=== PATIENT | female | born 1980 | race Caucasian/White ===

== ENCOUNTER 2020-08-30 13:05 | Emergency (ER) | payer OTHER, BC, SELFPAY ==
[2020-08-30 13:18] VITALS: BP 128/81; PULSE 130; RESP 28; TEMP 37.4; O2SAT 97
--- NOTE | 2020-08-30 13:32 | ED.FEMALEGU ---
HPI - Female Genitourinary General Chief complaint: Urogenital-Female Stated complaint: pos uti Time Seen by Provider: 08/30/20 13:20 Source: patient and RN notes reviewed Mode of arrival: ambulatory Limitations: no limitations History of Present Illness HPI Narrative: Patient presents today complaining of urinary frequency, cloudy urine, dysuria x4 days. Denies hematuria, abdominal pain, flank pain. She has been using cranberry supplements and Pyridium. Her last dose of Pyridium was this morning. No recent antibiotic use. MD elicited complaint: dysuria Related Data Home Medications Medication Instructions Recorded Confirmed albuterol sulfate 2 puff INHALATION Q4-6H PRN 08/30/20 08/30/20 cetirizine 10 mg PO DAILY PRN 08/30/20 08/30/20 dextroamphetamine-amphetamine 30 mg PO BID 08/30/20 08/30/20 ergocalciferol (vitamin D2) 1,250 mcg PO WEEKLY 08/30/20 08/30/20 famotidine 20 mg PO DAILY 08/30/20 08/30/20 fluticasone propion-salmeterol 1 inh INHALATION BID 08/30/20 08/30/20 [Wixela Inhub] montelukast 10 mg PO HS 08/30/20 08/30/20 trazodone 100 mg PO HS 08/30/20 08/30/20 Allergies Allergy/AdvReac Type Severity Reaction Status Date / Time No Known Allergies Allergy Verified 08/30/20 13:21 Review of Systems Review of Systems: Narrative: CONSTITUTIONAL: Denies body aches, fever, chills, or sweats. EYES: Denies visual changes, redness, or discharge. ENT: Denies rhinorrhea, congestion, sore throat, or otalgia. CARDIOVASCULAR: Denies chest pain, palpitations, or edema. RESPIRATORY: Denies cough or dyspnea. GASTROINTESTINAL: Denies abdominal pain, nausea, vomiting, or diarrhea. GENITOURINARY: Denies hematuria. + Dysuria, frequency SKIN: Denies rash, itching, or wounds. MUSCULOSKELETAL: Denies back pain, joint pain, or myalgia. NEUROLOGIC: Denies headache, numbness, tingling, or weakness. PSYCH: Denies depression or anxiety. [facility] Past Medical History Medical History (Updated 08/30/20 @ 13:34 by Donna Renner, [employer], ) Asthma Comments At time of signature, I have reviewed and agree with nursing past medical, surgical, social and family history unless otherwise noted. Please see nursing chart for further information. There is no relevant family history pertinent to the presenting complaint Exam Narrative: Exam Narrative: GENERAL: Well-appearing, well-nourished, and in no acute distress. HEAD: Normocephalic, atraumatic. EYES: EOMI. No redness or drainage. Conjunctivae normal. ENT: Mucous membranes pink and moist. NECK: Normal AROM. Supple. No lymphadenopathy. CHEST: No respiratory distress. Clear to auscultation. HEART: Regular rate and rhythm. No murmur appreciated. Normal peripheral pulses. ABDOMEN: Soft, nontender, nondistended, normal active bowel sounds.-CVAT MUSCULOSKELETAL: No bony tenderness. EXTREMITIES: Normal range of motion. No edema. SKIN: Warm, dry, no rash. Capillary refill normal. Normal skin turgor. NEURO: No focal deficits. Alert and oriented x3. Gait steady. PSYCH: Normal affect. No signs of depression or anxiety. Course Vital Signs Vital signs: Vital Signs Temperature 99.4 F 08/30/20 13:18 Pulse Rate 130 H 08/30/20 13:18 Respiratory Rate 28 H 08/30/20 13:18 Blood Pressure 128/81 08/30/20 13:18 Pulse Oximetry 97 08/30/20 13:18 Temperature 99.4 F 08/30/20 13:18 Pulse Rate 130 H 08/30/20 13:18 Respiratory Rate 28 H 08/30/20 13:18 Blood Pressure 128/81 08/30/20 13:18 Pulse Oximetry 97 08/30/20 13:18 Reviewed. Pt has been instructed to follow up with her PCP regarding her elevated blood pressure today. MDM - Female Genitourinary MDM Narrative Medical decision making narrative: Patient has been instructed not to take Pyridium or Azo if she is going to come in to be evaluated for UTI. We will treat her for Macrobid and wait for culture results. Differential Diagnosis Differential diagnosis: Likely urinary tract infection and cystitis Lab Rubin
== END 2020-08-30 13:40 | disposition home or self-care (01) ==
PROVIDERS: Emergency Provider Nurse Practitioner; PCP Family Medicine
DX: N30.01 Acute cystitis with hematuria (principal); J45.909 Unspecified asthma, uncomplicated; K21.9 Gastro-esophageal reflux disease without esophagitis; F90.9 Attention-deficit hyperactivity disorder, unspecified type
CPT/HCPCS: 81003; 87086; 87088; 99203; G0463

== ENCOUNTER → 2020-12-15 07:12 | Outpatient (CLI) | payer BC, SELFPAY ==
[2020-12-15 19:40] LABS: SARS-CoV-2 RNA PCR Negative
== END ==
PROVIDERS: PCP Family Medicine; Visit Provider Family Medicine
DX: R50.9 Fever, unspecified (principal); Z20.822 Contact with and (suspected) exposure to COVID-19
CPT/HCPCS: C9803; U0003; U0005

== ENCOUNTER 2021-05-08 16:02 | Emergency (ER) | payer BC, SELFPAY ==
[2021-05-08 16:41] VITALS: BP 138/99; PULSE 101; RESP 14; TEMP 37.2; O2SAT 100
[2021-05-08 17:15] LABS: Basophils Absolute Auto 0.1 K/mm3 (0.0-0.1); Basophils Percent Auto 0.6 % (0.2-1.2); Eosinophils Absolute Auto 0.3 K/mm3 (0-0.3); Eosinophils Percent Auto 2.7 % (0-4.4); Hematocrit 45.5 % (37.0-47.0); Immature Granulocyte Absolute 0.04 K/mm3 (0.00-0.031); Immature Granulocyte Percent A 0.4 % (0-0.5); Lymphocytes Absolute Auto 3.16 K/mm3 (0.9-3.2); Lymphocytes Percent Auto 31.8 % (18.3-44.2); Mean Corpuscular HGB Conc 35.2 g/dl (32-36); Mean Corpuscular Hemoglobin 32.6 pg (26-34); Mean Corpuscular Volume 92.7 fl (80-100); Mean Platelet Volume 11.2 fl (7.4-10.4); Monocytes Absolute Auto 0.8 K/mm3 (0.1-0.6); Monocytes Percent Auto 7.6 % (2.6-8.5); Neutrophils Absolute Auto 5.7 K/mm3 (1.3-6.7); Neutrophils Percent Auto 56.9 % (45.5-73.1); Platelet Count Result 267 k/mm3 (150-375); Red Blood Count 4.91 M/mm3 (4.2-5.4); Red Cell Distribution Width 12.3 % (11.5-14.5); White Blood Count 9.9 K/mm3 (4.5-10.0)
[2021-05-08 19:44] VITALS: BP 137/78; PULSE 94; RESP 16; TEMP 36.3; O2SAT 94
[2021-05-08 21:40] VITALS: BP 125/78; PULSE 94; RESP 16; TEMP 36.4; O2SAT 99
--- NOTE | 2021-05-08 22:18 | PC.NURSE ---
Pt does not want to be seen by provider, walked out at this time.
== END 2021-05-08 23:56 | disposition left against medical advice (07) ==
PROVIDERS: Emergency Provider Emergency Medicine
DX: N93.9 Abnormal uterine and vaginal bleeding, unspecified (principal)
CPT/HCPCS: 36415; 85025; 99199

== ENCOUNTER 2023-05-04 11:47 | Emergency (ER) | payer OTHER, BC, SELFPAY ==
[2023-05-04 12:04] VITALS: BP 128/82; PULSE 107; RESP 18; TEMP 36.5; O2SAT 98
--- NOTE | 2023-05-04 12:22 | ED.WOUNDLAC ---
HPI - Wound/Laceration General Chief Complaint: Wound/Laceration Stated Complaint: finger laceration Time Seen by Provider: 05/04/23 12:14 Source: patient and RN notes reviewed Mode of arrival: ambulatory Limitations: no limitations History of Present Illness HPI narrative: Patient presents today complaining of a laceration to her left 2nd finger that occurred yesterday approximately 24 hours ago. She cut her finger on a brand new eyebrow razor. She dressed it with some liquid skin glue yesterday and kept it covered. She is not up-to-date on her tetanus vaccine. Related Data Home Medications Medication Instructions Recorded Confirmed albuterol sulfate 90 mcg/actuation 2 puff inhalation Q4-6H PRN 08/30/20 05/04/23 aerosol inhaler Shortness Of Breath cetirizine 10 mg tablet 10 mg PO DAILY PRN Allergy Symptoms 08/30/20 05/04/23 dextroamphetamine-amphetamine 30 30 mg PO BID 08/30/20 05/04/23 mg tablet ergocalciferol (vitamin D2) 1,250 1,250 mcg PO WEEKLY 08/30/20 05/04/23 mcg (50,000 unit) capsule famotidine 20 mg tablet 20 mg PO DAILY 08/30/20 05/04/23 fluticasone 250 mcg-salmeterol 50 1 inh inhalation BID 08/30/20 05/04/23 mcg/dose blistr powdr for inhalation (Wixela Inhub) montelukast 10 mg tablet 10 mg PO HS 08/30/20 05/04/23 Allergies Allergy/AdvReac Type Severity Reaction Status Date / Time No Known Allergies Allergy Verified 05/04/23 12:19 Review of Systems Review of Systems: CONSTITUTIONAL: Denies body aches, fever, chills, or sweats. EYES: Denies visual changes, redness, or discharge. ENT: Denies rhinorrhea, congestion, sore throat, or otalgia. CARDIOVASCULAR: Denies chest pain, palpitations, or edema. RESPIRATORY: Denies cough or dyspnea. GASTROINTESTINAL: Denies abdominal pain, nausea, vomiting, or diarrhea. GENITOURINARY: Denies dysuria or hematuria. SKIN: + finger laceration MUSCULOSKELETAL: Denies back pain, joint pain, or myalgia. NEUROLOGIC: Denies headache, numbness, tingling, or weakness. PSYCH: Denies depression or anxiety. PMFSH Past Medical History Medical History Asthma Comments At time of signature, I have reviewed and agree with nursing past medical, surgical, social and family history unless otherwise noted. Please see nursing chart for further information. There is no relevant family history pertinent to the presenting complaint Exam Narrative: GENERAL: Well-appearing, well-nourished, and in no acute distress. HEAD: Normocephalic, atraumatic. EYES: EOMI. No redness or drainage. Conjunctivae normal. ENT: Mucous membranes pink and moist. NECK: Normal AROM. CHEST: No respiratory distress. EXTREMITIES: Normal range of motion. No edema. SKIN: Warm, dry, no rash. Capillary refill normal. Normal skin turgor. 1.5 cm full-thickness linear laceration to the palmar aspect of the left 2nd finger at the middle phalanx. No active bleeding. Mild surrounding edema. Small amount of obvious adipose visualized. Distal sensation intact. Capillary refill normal. Full range of motion of the finger. NEURO: No focal deficits. Alert and oriented x3. Gait steady. PSYCH: Normal affect. No signs of depression or anxiety. Course Course Level of Care: Express Care Visit Vital Signs Vital signs: Vital Signs Temperature 97.7 F 05/04/23 12:04 Pulse Rate 107 H 05/04/23 12:04 Respiratory Rate 18 05/04/23 12:04 Blood Pressure 128/82 05/04/23 12:04 Pulse Oximetry 98 05/04/23 12:04 Oxygen Delivery Room Air 05/04/23 12:04 Temperature 97.7 F 05/04/23 12:04 Pulse Rate 107 H 05/04/23 12:04 Respiratory Rate 18 05/04/23 12:04 Blood Pressure 128/82 05/04/23 12:04 Pulse Oximetry 98 05/04/23 12:04 Oxygen Delivery Room Air 05/04/23 12:04 Reviewed. Pt has been instructed to follow up with her PCP regarding her elevated blood pressure today. MDM - Wound/Laceration MDM Narrati
[2023-05-04] MEDS: TETANUS,DIPHTHERIA,AC PERTUSSIS ADULT (0.5 ML) BOOSTRIX IM (12:28)
== END 2023-05-04 12:38 | disposition home or self-care (01) ==
PROVIDERS: Emergency Provider Nurse Practitioner; PCP Family Medicine
DX: S61.211A Laceration without foreign body of left index finger without damage to nail, initial encounter (principal); W26.9XXA Contact with unspecified sharp object(s), initial encounter; Z23 Encounter for immunization
CPT/HCPCS: 90471; 90715; 99213; G0463

== ENCOUNTER 2024-12-10 08:29 | Emergency (ER) | payer OTHER, MEDICAID, SELFPAY ==
--- NOTE | ~2024-12-10 | XR_ITS ---
EXAM/PROCEDURE: XR chest 2V - 12/10/2024 09:00 CDT HISTORY: 44 years old Female with cough, SOB TECHNIQUE: Two view(s) of the chest. COMPARISON: 06/20/2014 FINDINGS: LUNGS/ PLEURA: No focal consolidation. Mild perihilar bronchial wall thickening. HEART/ MEDIASTINUM: Heart appears normal in size. BONES: No acute osseous abnormality. OTHER: Visualized upper abdomen is unremarkable. IMPRESSION: No focal consolidation. Mild perihilar bronchial wall thickening, findings suggestive of respiratory bronchiolitis. Reviewed, dictated and finalized at location A. IMPRESSION: No focal consolidation. Mild perihilar bronchial wall thickening, findings sugg estive of respiratory bronchiolitis.
--- OUTSIDE RECORDS SUMMARY | 2024-12-10 08:37 | XMS_ITS | Continuity of Care Document ---
Author Organization [employer] [facility] Address [address] [place] [id number] Phone Care Team Providers Care Chute Operator Name Role Phone Chacorta Nguyen MD, FACS Unavailable Unavailab le Allergies, Adverse Reactions, Alerts Substance Reaction Status Criticality No Known Allergies Active No Inform ation Medications Medication Instructions Dosage Effective Dates (start - stop) Status Comments Alrex 0.2 % eye drops,suspension INSTILL 1 DROP INTO BOTH EYES TWICE DAILY - Active ProAir HFA 90 mcg/actuation Aerosol Inhaler inhale 2 puff by inhalation route every 4 - 6 hours as needed - Active ADVAIR DISKUS (unknown strength) Not Available - Active ADDERALL (unknown strength) take 1 tablet by ORAL route 2 times every day before breakfast and at noon Not Available - Active Alrex 0.2 % eye drops,suspension INSTILL 1 DROP INTO BOTH EYES TWICE DAILY - No Longer Active Procedures Procedure Date Post-op Follow-up Visit Post-op Follow-up Visit Post-op Follow-up Visit Post-op Follow-up Visit No Charge Orbscan Post-op Follow-up Visit Eye Exam & Treatment Refraction Contact Lens Assessment Contact Lens Hydrophilic, Spherical Eye Exam & Treatment Refraction Contact Lens Fit, Med Superv, Level 1 Au Contact Lens Hydrophilic, Spherical Eye Exam & Treatment Refraction Contact Lens Hydrophilic, Spherical Contact Lens Fit, Med Superv, Level 1 Contact Lens Hydrophilic, Spherical Eye Exam & Treatment Refraction Eye Exam & Treatment Eye Exam & Treatment Refraction Advance Directives Directive Yes / No Effective Date File Name No Information Encounters Encounter Description Practice Location Reason(s) For Visit Diagnoses Date Provider Providers Copied on Encounter [facility], [facility] [address], [place], [place], [id number], [place] [phone] SEC Megan Mendenhall No Information 8 Patrick Whatley. [facility] [address], [address], [place], [place], [id number], [place]. tel:[phone] [facility], [facility] [address], [place], [place], [id number], [place] tel:[phone] SEC [place] No Information 7 Dara Valencia. [address] [place], [address], [place]. tel:[phone] [facility], [facility] [address], [place], [place], [address], [place] tel:[phone] SEC Megan Mendenhall 3 month f/u, Post op (chief complaint) Post Op exam 0 5 Maria E Lieberman. [address] [facility] [place] [facility], [facility] [address], [place], [id number], [place]. tel:[phone] Referring Provider: Chacorta Damon, [facility] [address], [place], [address] . tel:[phone] [facility], [facility] [address], [place], [place], [address], [place] tel:[phone] SEC Mancelona N Lindbergh 3 MO LASIK PO (chief complaint) FOLLOW-UP SURGERY NOS 0-201 5 Maria E Lieberman. [address], [id number], . tel:[phone] Referring Provider: Mio Barcenas, [address] [facility] [place] [facility] [address] [place] [address], [address] . tel:[phone] [facility], [address] [place] [address] [address], [place], [place], [address], [place] tel:[phone] SEC Mancelona N Lindbergh 2 Week PO LASIK OU (chief complaint) FOLLOW-UP SURGERY NOS 3-201 5 Maria E Lieberman. [address], [id number], . tel:[phone] Referring Provider: Mio Barcenas, [address], [address] . tel:[phone] [facility], [address], [place], [place], [address], [place] tel:[phone] SEC Emgan N Lindbergh 1 WK PO LASIK (chief complaint) FOLLOW-UP SURGERY NOS 8-201 5 Maria E Lieberman. [address] [facility] [address], [place], [id number], . tel:[phone] Referring Provider: Chacorta Damon, [address], [place], [address] . tel:[phone] [facility], [address] [place] [address] [address], [place], [place], [address], [place] tel:[phone] SEC Mancelona N Lindbergh 1 DAY PO LASIK (chief complaint) FOLLOW-UP SURGERY NOS 8-201 5 Maria E Lieberman. [address] [facility] [place] [facility], [facility] [address], [place], [address], . tel:[phone] Referring Provider: Mio Barcenas, [address], [address] . tel:[phone] [facility], [address], [place], [place], [address], tel:[phone] SEC Mancelona N Lindbergh Blurry vision (chief complaint) MYOPIA 5 Maria E Lieberman. [address], [id number], . tel:[phone] Referring Provider: Mio Barcenas, [address], [address] . tel:[phone] [facility], [address] [place] [address] [address], [place], [place], [address], tel:[phone] SEC Mancelona N Lindbergh No Information 5 [facility] . [address] [place] [address], [id number], . tel:[phone] Referring Provider: Mio Barcenas, [address] [place] [address], [address] . tel:[phone] sulting Provider: Ryan Page, [address] [facility] [address], [place], [address] . tel:[phone] [facility], [address] [place] [address] [address], [place], [place], [address], [place] tel:[phone] SEC Mancelona N Lindbergh MYOPIA 3 Maria E Lieberman. [address], [id number], . tel:[phone] [facility], [address], [place], [place], [address], [place] tel:[phone] SEC Megan N Lindbergh No Information 3 [facility] . [address] [facility] [place] [facility], [address], [address], [place]. tel:[phone] Referring Provider: Mio Barcenas, [address] [facility] [place] [facility] [address], [place], [address] . tel:[phone] sulting Provider: Ryan Page, [address], [place], [address] . tel:[phone] [facility], [address] [place] [address] [address], [place], [place], [address], [place] tel:[phone] SEC Megan Mendenhall EYE & VISION EXAMINATIONMYOPIA 2 Maria E Lieberman. [address] [facility] [place] [facility], [facility] [address], [place], [address], [place]. tel:[phone] [facility], [address] [place] [address] [address], [place], [place], [address], [place] tel:[phone] SEC Megan N Abdirashid No Information 2 [facility] . [address] [place] [address], [address], [id number], [place]. tel:[phone] Referring Provider: Mio Barcenas, [address] [address], [place], [address] . tel:[phone] [facility], [address], [place], [place], [address], [place] tel:[phone] SEC Mancelona Makeda Mendenhall No Information 2 Patrick Whatley. [address] [facility], [address], [place], [place], [address], [place]. tel:[phone] [facility], [address], [place], [place], [address], [place] tel:[phone] SEC Megan Mendenhall No Information Feb-1 0-201 2 Sanderson Mio. [address] [facility] [place] [facility], [address], [place], [place], [address], [place]. tel:[phone] [facility], [address], [place], [place], [address], [place] tel:[phone] SEC Mancelona N Lindbergh No Information 2 3-201 1 [facility] . [address] [facility] [place] [facility], [address], [place], [place], [address], [place]. tel:[phone] Referring Provider: Mio Barcenas, [address] [facility] [place] [facility] [address], [place], [address] . tel:[phone] sulting Provider: Amber Ivy, [address] [facility]. [address], [place], [address]. tel:[phone] [facility], [address], [place], [place], [address], [place] tel:[phone] SEC Mancelona N Lindbergh No Information 0-201 0 Sanderson Mio. [address] [facility] [place] [facility], [address], [id number], [place]. tel:[phone] [facility], [address], [place], [place], [address], [place] tel:[phone] SEC Mancelona N Lindbergh No Information 0 5200 9 Sanderson Mio. [address] [facility] [place] [facility], [facility] [address], [place], [address], [place]. tel:[phone] [facility], [address], [place], [place], [address], [place] tel:[phone] SEC Mancelona N Lindbergh No Information 4-200 8 Sanderson Mio. [address] [facility] [place] [facility], [address], [id number], [place]. tel:[phone] Family History Family Member Type Diagnosis Age At Onset No Information Payers Payer name Insurance type Covered constitution party ID Authornori gonzalez(s) No Information Social History Type Description Quantity Date Captured Comments Sex Female Smoking Status No Information Chief Complaint And Reason For Visit No Information Reason For Referral Reason For Referral No Information Plan Of Treatment Date Type Action Status Goal Tobacco cessation counseling completed History Of Present Illness Encounter Date Complaint History Of Prese nt Illness 3 month f/u, Post op The 34 year old female presents for a 3 month f/u for a 6 month post op OU. Patient Hx LASIK OU 01/05/15. Patient c/o irritation with dryness still OS. Patient c/o FBS feeling OS. Patient denies any problems OD. Patient denies any v/a changes at this time OU. Patient using CUTTER APPRENTICE HAND tears all day long OS and Blink Gel 4-5 x a day, mainly OS. 3 MO LASIK PO The 34 year old female presents for 3 MO LASIK PO. Patient Hx LASIK OU 01/05/2015. Patient reports OS is still giving her trouble with irritation and dryness. Patient reports she uses PF AFT all day long OS. Patient reports OD feels good, no irritation. 2 Week PO LASIK OU The 34 year o ld female presents for a 2 Week PO LASIK OU. Pt states that vision is much better than last visit and eye are feeling better. She is Systane Gel and AFT PRN. Pt states no pain or discomfort. 1 WK PO LASIK The 34 year old female presents for 1 WK PO LASIK OU. Patient reports her PO drops ran out right at the one week stephan. She uses Refresh tears constantly because OU feel very dry, scratchy and irritated. Patient reports OU vision is good. Patient has been using Genteal Gel QHS OU. 1 DAY PO LASIK The 34 year old female presents for a 1 DAY PO LASIK. Pt states that vision is good. OD feels fine but OS is a little scratchy. Pt assigned AFT every hr, LotemaxQID, Tobramycin QIDand POLy QID all for the first week. Pts last eye drops were a 245pm today while she was waiting in the waiting room. Blurry vision The 34 year old female presents for a complete exam. Patient states tht VA is stable for distance and near OU. Patient wears soft CTL's Ciba Air optix OD -3.50-sph OS -3.50-sph. She says she thinks that the CTL's bother her eyes OU. She says she feels as if they always have junk in eyes OU. She said she used to be able to sleep in them, but now they bother her too much. Patient is wanting new CTL's so they will not be as scratchy. Patient not taking any drops at this time. Functional Status Date Functional Assessmen t No Information Instructions Date Instruction Additional Infor kalpesh Impression/Plan - In structed to use warm compresses.Alrex bid OU.If continues may need Rx for Pazeo.Return for annual exam. Related to Post Op exam Impression/Plan - Al jose armando bid OU, continue Blink tears and CUTTER APPRENTICE HAND tears.Return for annual exam. Related to Post Op exam - Suggest Blink Gel drops 3-4 x days with CUTTER APPRENTICE HAND tears in between.Return 3 months for 6 month post-op. Related to FOLLOW-UP SURGERY NOS - Return 2 months for 3 month ev al. Related to FOLLOW-UP SURGERY NOS - Increase AT's, Ret urn 2 weeks for 1 months post-op. Related to FOLLOW-UP SURGERY NOS - Continue Pred, Aly y and tob qid OU x 1 week.Frequent CUTTER APPRENTICE HAND AT's.Return 1 week. Related to FOLLOW-UP SURGERY NOS - Return in 1 year Related to MY OPIA - Patient given new CLs today.Given samples of ClearKare.Instructed to use warm compresses. Related to MYOPIA - Return in 1 year Related to MY OPIA MYOPIA OU Vision: vi maricruz stable. - Discussed diagnosis in detail with patient. New glasses Rx was given today.CL Rx for AOAquaOD -3.75OS -3.75Discussed the resks of extended wear of contact lenses, recommend not wearing lenses for thirty days even though the Night and Day lenses she was wearing was approved for 3o day wear. Patient decided to switch to AOAqua. Related to MYOPIA EYE & VISION EXAMINA TION, OU - established, stable CLoverwear - suggest remove CL WEEKLY and soak in Clear Care Related to EYE & VISION EXAMINATION - 1year Related to Myopi a Myopia, OU - Patient given new CLs today.Discussed lasik Related to Myopia Assessments Type Assessment Date No Information Patient Care Teams Name Effective Dates (start - stop) Status Members No Information
--- OUTSIDE RECORDS SUMMARY | 2024-12-10 08:37 | XMS_ITS | Data Portability ---
Author Organization [facility] Address [address] [place] [address] Care Team Providers Care Medical Services Coordinator Name Role Phone BRENT POOLE Primary Care Provider Assessment Encounter Date Assessment Date Assessment LastModified by Organization Details LastModified Time 06/08/2021 06/08/2021 this patient is a 40-year-old female with severe menorrhagia. Is severely affects her quality of living and and her activities of daily living. She has had to leave work numerous times and has to miss work due to her menses and her pain. The patient and I disscussed the various causes of abnormal uterine bleeding, including polyps, fibroids, hyperplasia, atypia, anovulation, etc. We reviewed the typical evaluation with labs, pelvic US and possible endometrial biopsy. Briefly discussed the options available for treatment (depending on the results of evaluation) such as hormonal treatment (OCPs, progestins), Mirena, endometrial ablation, and surgery. We spent more than 30 minutes face to face. [email or web address] Not available 06/08/2021 15:46:14 Plan of Treatment Reminders Order Date Submit Date Provider Last Modified By Organization Details Last Modified Time Details Appointments None recorded. Lab None recorded. Referral None recorded. Procedures None recorded. Surgeries None recorded. Imaging US, pelvis 2020 021 [email or web address] [address], [place], [address], 21:07:25 US, transvagina l 2020 021 [email or web address] [address], [place], [address], 21:07:25 US, pelvis, complete 2020 021 [email or web address] Walters MD, [address], [place], [address], 16:29:31 Medication Orders ondansetron 8 mg disintegrat ing tablet 2020 021 [id number], [address] [facility], [place], [place], [id number], 15:47:51 Patient TargetsNo targets recorded. Patient InstructionsNo instructions recorded. Reason for Referral None Reported. Results Created Date Observation Date Name Description Value Unit Range Abnormal Flag Note LastModifiedBy Organization Detail LastModifiedTime 06/15/2006/15/2021 US, pelvi s No observ ation record ed. [address], [place], [address], 06/15/2021 16:28:34 06/15/2006/15/2021 US, trans vagin al No observ ation record ed. [email or web address], [place], [address], 06/15/2021 16:28:23 06/15/20 21 06/15/2021 US, pelvi s No observ ation record ed. [facility] [address], [place], [address], 06/21/2021 13:33:12 Result Notes None recorded. Procedures Surgical History Date Name Laterality Status Provider Name and Address Organization Details Recorded Time 05/02/2020 Date of Last Pap Smear completed [facility] 06/08/2021 15:04:10 09/01/2016 hernia repair [address] [facility] 06/08/2021 15:20:11 Imaging Results Imaging Date Name Status LastModified by Organization Details LastModified Time 06/15/2021 US, pelvis completed [email or web address] [address], [place], [address], 06/15/2021 16:28:34 06/15/2021 US, transvaginal completed [email or web address] [facility] [address], [place], [address], 06/15/2021 16:28:23 06/15/2021 [facility] [address] [facility], [place], [address], 06/21/2021 13:33:12 Procedure Notes None recorded. Medical Equipment None Reported. Allergies No known drug allergies Medications Name Sig Start Date Stop Date Status Note LastModified by Organization Details LastModified Time fluticasone 250 mcg-salmetero l 50 mcg/dose blistr powdr for inhalation INHALE 1 PUFF BY MOUTH TWICE DAILY DIRECTED active Not Available Not Available No t Available prednisone 10 mg tablet active Not Available Not Available No t Available nicotine 14 mg/24 hr daily transdermal patch APPLY 1 PATCH TOPICALLY TO THE SKIN EVERY DAY DIRECTED active Not Available Not Available No t Available trazodone 50 mg tablet TK 1 T PO QD HS active Not Available Not Available No t Available cetirizine 10 mg tablet TAKE 1 TABLET BY MOUTH DAILY NEEDED active Not Available Not Available No t Available azithromycin 250 mg tablet active Not Available Not Availabl e Not Available benzonatate 200 mg capsule TAKE 1 CAPSULE BY MOUTH EVERY 8 HOURS FOR 7 DAYS NEEDED active Not Available Not Available No t Available ondansetron 8 mg disintegratin g tablet DISSOLVE 1 TABLET ON THE TONGUE TWICE DAILY active Not Available Not Available No t Available dextroampheta mine-amphetam ine 30 mg tablet TAKE 1 TABLET BY MOUTH TWICE DAILY DIRECTED active Not Available Not Available No t Available famotidine 20 mg tablet TAKE 1 TABLET BY MOUTH TWICE DAILY NEEDED active Not Available Not Available No t Available trazodone 100 mg tablet TAKE 1 TABLET BY MOUTH EVERY DAY AT BEDTIME active Not Available Not Available N ot Available cephalexin 500 mg capsule TK 1 C PO TID FOR 7 DAYS UTD active Not Available Not Available No t Available montelukast 10 mg tablet TAKE 1 TABLET BY MOUTH EVERY DAY IN THE EVENING active Not Available Not Available No t Available ergocalcifero l (vitamin D2) 1,250 mcg (50,000 unit) capsule TAKE 1 CAPSULE BY MOUTH EVERY WEEK DIRECTED active Not Available Not Available No t Available albuterol sulfate HFA 90 mcg/actuation aerosol inhaler INHALE 2 PUFFS BY MOUTH EVERY 6 HOURS NEEDED active Not Available Not Available No t Available oxybutynin chloride 5 mg tablet TAKE 1 TABLET BY MOUTH TWICE DAILY DIRECTED active Not Available Not Available No t Available fluticasone propionate 50 mcg/actuation nasal spray,suspens ion SHAKE LIQUID AND USE 2 SPRAYS IN EACH NOSTRIL EVERY DAY DIRECTED active Not Available Not Available No t Available amoxicillin 875 mg-potassium clavulanate 125 mg tablet TAKE 1 TABLET BY MOUTH EVERY 12 HOURS FOR 10 DAYS active Not Available Not Available No t Available nicotine 7 mg/24 hr daily transdermal patch BLANE 1 PA EXT TO THE SKIN QD UTD active Not Available Not Available No t Available nitrofurantoi n monohydrate/m acrocrystals 100 mg capsule TAKE 1 CAPSULE BY MOUTH EVERY 12 HOURS FOR 7 DAYS active Not Available Not Available No t Available albuterol active Not Available Not Dari ilable Not Available Adderall (30mg) active Not Available Not Available Not Available Advair Diskus active Not Available Not Available Not Available Chantix 0.5 mg tablet TAKE 1 TABLET BY MOUTH EVERY 12 HOURS DIRECTED active Not Available Not Available No t Available Afrin No Drip (oxymetazolin e) 0.05 % nasal mist active Not Available Not Available N ot Available ID NOW COVID-19 Test Kit TEST DIRECTED active Not Available Not Available No t Available Vitals Date Recorded Body weight Body mass index (BMI) Body height Systolic blood pressure Diastolic blood pressure Provider Name and Address Organization Details Last Updated DateTime 06/08/2021 570627.2 5 g 42.1 kg/m2 157.48 cm 139 mm[Hg] 95 mm[Hg] Corine De Jesus [facility] 15:16:59 Date Recorded Body height Body mass index (BMI) Body weight Systolic blood pressure Diastolic blood pressure Provider Name and Address Organization Details Last Updated DateTime 06/20/2021 157.48 cm 42.3 kg/m2 562415.8 4 g 140 mm[Hg] 97 mm[Hg] Corine De Jesus [facility] 17:02:05 Social History Question Answer Notes LastModified by Organizat ion Details LastModified Time Tobacco Smoking Status Current Every Day Smoker Corine De Jesus usze [facility] 06/20/2021 17:02:17 Do You Have An Advance Directive? No Information not available 06/08/2021 What Is Your Level Of Alcohol Consumption? Moderate Information not available 06/08/2021 How Many Years Have You Consumed Alcohol? 18 Information not available 06/08/2021 Are You Blind Or Do You Have Difficulty Seeing? No Information not available 06/08/2021 What Is Your Level Of Caffeine Consumption? Occasional Information not available 06/08/2021 How Much Tobacco Do You Chew? None Information not available 06/08/2021 In The 14 Days Before Symptom Onset, Have You Had Close Contact With A Laboratory-confir med COVID-19 While That Case Was Ill? No Information not available 06/08/2021 In The 14 Days Before Symptom Onset, Have You Had Close Contact With A Person Who Is Under Investigation For COVID-19 While That Person Was Ill? No Information not available 06/08/2021 Have You Been To An Area Known To Be High Risk For COVID-19? No Information not available 06/08/2021 Are You Deaf Or Do You Have Serious Difficulty Hearing? No Information not available 06/08/2021 What Type Of Diet Are You Following? REGULAR Information not available 06/08/2021 What Is The Highest Grade Or Level Of School You Have Completed Or The Highest Degree You Have Received? 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 No Information not available 06/20/2021 Do You Use Protection During Sex? Usually Information not available 06/08/2021 Do You Use Your Seat Belt Or Car Seat Routinely? No Information not available 06/08/2021 Do You Have Smoke And Carbon Monoxide Detectors In Your Home? Yes Information not available 06/08/2021 At What Age Did You Start Smoking Tobacco? 15 Information not available 06/08/2021 How Much Tobacco Do You Smoke? 1 PPD Information not available 06/08/2021 Do You Feel Stressed (tense, Restless, Nervous, Or Anxious, Or Unable To Sleep At Night)? [id number] Information not available 06/08/2021 Do You Use Any Illicit Or Recreational Drugs? No Information not available 06/08/2021 Do You Use Sunscreen Routinely? Yes Information not available 06/08/2021 How Many Years Have You Smoked Tobacco? 20 Information not available 06/08/2021 Have You Used IV Drugs? No Information not available 06/08/2021 Sex: Unknown Functional Status Question Answer Note LastModified by Organization D etails LastModified Time Are you able to walk? YESWOREST Information not available 06/08/2021 What is your exercise level? Moderate Information not available 06/08/2021 Mental Status None recorded. Family History Relationship Description Onset Age of this Age Resolved Age Notes LastModified by Organization Details LastModified Time Paternal Grandmother Malignant tumor of breast Not available 2020 17:02:09 Paternal Grandmother Malignant tumor of breast Not available 2020 17:02:09 Mother Amyotrophic lateral sclerosis Not available 2020 17:02:09 Medical History Condition Response Allergies (Food, seasonal, environmental ) Y Asthma Y Gynecological History Statement/Question Response Date of LMP 05/10/2021 On BCP's at Conception? N N Was last menstrual period normal Y STIs/STDs Y HPV Vaccine N Duration of Flow (days) 5 Current Control Method None Frequency of Cycle (Q days) 29 Sexually Active? N Age of first menstrual cycle 15 Date of Last Pap Smear 05/02/2020 Sexual Problems? N LMP Approximate N Obstetrics History GPAL:G 1 P 0 0 1 0 Type Value Induced 1 Living 0 Total 1 Past Encounters Encounter ID Performer Location Encounter Start Date Encounter Closed Date Diagnosis/Indication Diagnosis SNOMED-CT Code Diagnosis ICD10 Code Diagnosis Note [id number] Chandana Walters MD [facility] [address] [address] 06/08/2021 14:51:43 06/08/2021 15:45:55 Menorrhagia 535934537 N92.0 [facility] [id number] R11.0 [id number] Dara Sawant [address] [address],[place] [address] 06/15/2021 15:54:29 06/15/2021 16:23:31 Menorrhagia 292603095 N92.0 [id number] Chandana Walters MD [facility] [address],[facility] [place] [address] 06/20/2021 16:53:42 06/21/2021 09:19:55 Menorrhagia 158257615 N92.0 Uterine leiomyoma 492739 05 D25.9 this patient is a 40-year-ol d female presents for follow-up on ultrasound . We spent over 35 minutes face-to-fa ce today. total time on the case was over 45 minutes. She has severe menorrhagi a. Her ultrasound revealed uterine fibroids. We talked about uterine fibroids. We talked about the etiology, natural history, treatment of uterine fibroids. We talked about menorrhagi a and is treatment. We talked about her cardiovasc ular risk factors and how that limits her treatment options. We talked about all her medical treatment options. We talked about procedures . We talked about 1 procedure in great detail. That procedure is endometria l ablation. We reviewed her video on endometria l ablation. We talked about tubal ligation or bilateral salpingect alexandra. We talked about the procedure in detail my it was required. We also discussed endometria l biopsy and total hysterecto my. She has uterine fibroids that are significan t in size but are at the periphery of the uterus. The patient is considerin g very seriously endometria l ablation with bilateral salpingect alexandra. She is going to contact us if she is ready to move forward. Health Concerns Section Related Observation LastModified by Organization Detai ls LastModified Time None Recorded Concern Status LastModified by Organization Details LastModified Time None Recorded Advance Directives Directive N: Payers Encounter Date Sequence Insurance Name Policy Number Policy Carrillo Covered Member ID Carrillo Member ID Guarantor Name 06/08/2021 1 [employer] - [facility] - CHOICE PLUS (PPO) [id number] Leyla Benítezebrand [id number] Leyla Benítezebrand 06/15/2021 1 [employer] - [employer] - CHOICE PLUS (PPO) [id number] Leyla Mitchell Hillebrand [id number] Leyla Hillebrand 06/20/2021 1 [employer] - [employer] - CHOICE PLUS (PPO) [id number] Leyla Benítezebrand [id number] Leyla Jeysonebrand Notes Date Note Type Note Provider Name and Address Organization Details Recorded Time 06/08/2021 text/html This patient is a 40 year-old female presents for heavy vaginal bleeding. She has longstanding very heavy bleeding. Her menses are regular. However, they require double protection. Patient has accidents, getting blood on her bedding and clothing. Is affected work. She changes a pad or tampon every hour. She leaks blood around the pad and tampon. This bleeding has a profound impact on her quality of life and her activities of daily living. also reports severe dysmenorrhea, has terrible pain that radiates up into her upper abdomen, has missed work numerous times due to her symptoms. Has some severe GI sx's at the time of her menses Severe tenesmus. frequent trips to the bathroom to attempt BM. Chandana Walters MD [address], [place], [address], [place] [facility] 06/08/2021 15:48:16 06/20/2021 text/html this patient is a 40-year-old female presents for follow-up on ultrasound. We spent over 35 minutes [id number] today. total time on the case was over 45 minutes. She has severe menorrhagia. Her ultrasound revealed uterine fibroids. We talked about uterine fibroids. We talked about the etiology, natural history, treatment of uterine fibroids. We talked about menorrhagia and is treatment. We talked about her cardiovascular risk factors and how that limits her treatment options. We talked about all her medical treatment options. We talked about procedures. We talked about 1 procedure in great detail. That procedure is endometrial ablation. We reviewed her video on endometrial ablation. We talked about tubal ligation or bilateral salpingectomy. We talked about the procedure in detail my it was required. We also discussed endometrial biopsy and total hysterectomy. She has uterine fibroids that are significant in size but are at the periphery of the uterus. The patient is considering very seriously endometrial ablation with bilateral salpingectomy. She is going to contact us if she is ready to move forward. Chandana Walters MD [address], [place], [address], [place] [facility] 06/20/2021 17:52:19 OBGyn Episode No OBEpisode recorded.
--- OUTSIDE RECORDS SUMMARY | 2024-12-10 08:38 | XMS_ITS | Clinical Summary ---
Author Organization [facility] Address [address] [place] [address] Care Team Providers Care Farm Boss Name Role Phone Armani Espinosa MD Primary Care Provider [phone] Source Comments [facility],non-owned Affiliates and Associated Physician Practices is amultiple site organization consisting of ambulatory clinics and hospital sitesin [place], [place], [place] and [place]. This disclosure is being madepursuant to the Care Everywhere program and may not contain all information available regarding this patient. Last updated 18.[facility] Allergies No known active allergies Medications * Be aware that medications may not be up to date on this document. Alwaysverify current medications with the patient. Medication Sig Dispensed Refills Start Date End Date Status PROAIR HFA 108 (90 BASE) MCG/ACT inhaler INHALE 2 PUFFS PO QID PRN 1 01/29/2017 Active ADVAIR DISKUS 250-50 MCG/DOSE inhaler INHALE ONE PUFF PO BID 1 01/29/2017 Active MIRALAX packet MIX 1 PACKET IN 8 OUNCES OF WATER AND DRINK D 0 01/04/2017 Active amphetamine-dextroam phetamine (ADDERALL) 30 MG tablet Take 1 (one) tablet by mouth 2 times daily Active Phenylephrine HCl (AFRIN ALLERGY NA) [place] into the nose as needed Active clobetasol (OLUX) 0.05 % Apply to affected area 2 times daily Active mupirocin calcium (BACTROBAN) 2 % creamIndications:Sec ondary Skin Infection Apply to affected area 2 times daily Reasons: Skin Infection Resulting from Existing Skin Disease 30 g 06/03/2018 Active ondansetron, disintegrating, (Zofran ODT) 4 MG tablet Take 1 (one) tablet by mouth every 6 hours as needed for Nausea/Vomiting Allow tablet to dissolve on the tongue 20 tablet 2 11/07/2022 Active norethindrone (Ortho Micronor; Nor-Qd; Junie; Janet; Arelis-Be; Dione; Jolivette) 0.35 MG tablet Take 1 (one) tablet by mouth once daily 90 tablet 4 01/08/2023 Active tiZANidine (Zanaflex) 2 MG tablet Take 1 (one) tablet by mouth every 8 hours as needed for Muscle Spasms 20 tablet 2 01/15/2023 Active famotidine (Pepcid) 20 MG tablet Take 1 (one) tablet by mouth 2 times daily as needed 01/14/2023 Active cetirizine (ZyrTEC) 10 MG tablet Take 1 (one) tablet by mouth once daily as needed 01/23/2023 Active vitamin D, ergocalciferol, (Drisdol) 1.25 MG (05445 UT) capsule TAKE 1 CAPSULE BY MOUTH EVERY WEEK DIRECTED 01/23/2023 Active montelukast (Singulair) 10 MG tablet Take 1 (one) tablet by mouth at bedtime Active ibuprofen (Motrin) 600 MG tablet Take 1 (one) tablet by mouth every 6 hours as needed for Pain 30 tablet 02/20/2023 Active Active Problems Problem Noted Date Diagnosed Date 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 Ventral hernia without obstruction or gangrene 0 02/05/2017 ETOHism 11/15/2009 Immunizations Name Administration Dates Next Due TDAP (7yrs+) 04/05/2012 Family History Medical History Relation Name Comments ALS - Amyotrophic Lateral Sclerosis Mother Other Mother Terri Murphy Dis ease Relation Name Status Comments Brother Alive Father Alive Maternal Grandfather Maternal Grandmother Alive Mother Paternal Grandfather Paternal Grandmother Alive Social History Tobacco Use Types Packs/Day Years Used Date Smoking Tobacco: Every Day Cigarettes 0.5 20 Smokeless Tobacco: Never Tobacco Cessation:Ready to Q uit: Not Asked; Counseling Given: Not Answered Alcohol Use Standard Drinks/Week Comments Yes 6 (1 standard drink = 0.6 oz pur e alcohol) Weekly PHQ-2 Answer Date Recorded PHQ2 TOTAL SCORE 0 03/07/2023 Sex and Gender Information Value Date Recorded Sex Assigned at Female 11/05/2022 2:51 PM POLE SHAVER Gender Identity Female 11/05/2022 2:51 PM POLE SHAVER Sexual Orientation Straight 11/05/2022 2: 51 PM POLE SHAVER Last Filed Vital Signs Vital Sign Reading Time Taken Comments Blood Pressure 136/84 03/07/2023 3:31 PM CDT Pulse 82 02/20/2023 10:25 AM CDT Temperature 36.6 C (97.8 F) 02/20/2023 9:51 AM CDT Respiratory Rate 12 02/20/2023 10:25 AM CDT Oxygen Saturation 97% 02/20/2023 10:25 AM CDT Inhaled Oxygen Concentration - - Weight 108.9 kg (240 lb) 03/07/2023 3:31 PM CDT Height 157.5 cm (5' 2 ) 03/07/2023 3:31 PM CDT Body Mass Index 43.9 03/07/2023 3:31 PM CDT Plan of Treatment Health Maintenance Due Date Last Done Comments LIPID TESTING 1981 HIV SCREENING 1996 HEPATITIS C SCREENING 09/25/1999 HEPATITIS B VACCINE (1 of 3 - 19+ 3-dose series) 2000 PNEUMOCOCCAL VACCINE (1 of 2 - PCV) 2000 PAP with HPV 01/01/2021 01/02/2016 DTAP/TDAP/TD VACCINES (2 - T d or Tdap) 04/05/2022 04/05/2012 SCREENING FOR DIABETES 11/06/2022 1, 11/15/2009, 11/15/2009 COVID-19 VACCINE ( - 2023-2 5 season) 2024 DEPRESSION SCREENING 09/01/2024 03/07/2023 MAMMOGRAM 10/14/2024 10/14/2022 INFLUENZA VACCINE (Season Ended) 2025 05/28/2021, 06/08/2020, 06/18/2014 ZOSTER VACCINE (1 of 2) 2031 HIB VACCINE Aged Out No longer eligi ble based on patient's age to complete this topic HPV VACCINE Aged Out No longer eligi ble based on patient's age to complete this topic MENINGOCOCCAL (Group B) VACCINE SHARED DECISION-MAKING Aged Out No longer eligible based on patient's age to complete this topic MENINGOCOCCAL GROUPS A/C/Y/W VACCINE Aged Out No longer eligible b ased on patient's age to complete this topic Medical Devices Implanted Type Area Staying Machine Operator Device Identifier Shelf Expiration Date Model / Serial / Lot Patch Srg Strap Sprg Opn Vntrlx St Sepra Implanted:Qty: 1 on 02/13/2017 by Jorge Ayala MD at [facility] Abdomen [employer] 11/26/2018 [id number] / / [id number] Mirena Implanted:Qty: 1 on 02/20/2023 by Zohreh Murray MD at [facility] N/A: Uterus Tyree Tonya 02/28/[address] [facility] [id number] / / [id number] Procedures Procedure Name Priority Date/Time Associated Diagnosis Comments PAP IG LB CT+NG MALCOLM+ONEL HPV 16,18 Routine 01/02/2016 12:06 PM CDT Well woman exam with routine gynecological exam COMPREHENSIVE METABOLIC PANEL STAT 11/06/2010 10:23 PM POLE SHAVER from Last 3 Months or Most Recently Relevant to Health Maintenance Results * PAP IG CT+NG MALCLOM+ONEL HPV 16/18 (PO REF) (01/02/2016 12:06 PM CDT) Diagnosis [facility] INSURANCE BILL Comment: NEGATIVE FOR INTRAEPITHELIAL LESION AND MALIGNANCY. CELLULAR CHANGES ASSOCIATED WITH INFLAMMATION ARE PRESENT. THIS SPECIMEN WAS RESCREENED PART OF [employer] INVESTIGATOR PROGRAM. Specimen Adequacy [facility] INSURANCE BILL Comment: Satisfactory for evaluation. Endocervical and/or squamous metaplastic cells (endocervical component) are present. Clinician Provided ICD10 [facility] INSURANCE BILL Comment: Z01.419 Z11.3 Z30.011 Performed by [facility] INSURANCE BILL Comment:Sakina White, Cytotec hnologist (ASCP) QC Reviewed by [facility] INSURANCE BILL Comment:Laura Perez pervisory Lime Plant Operator (ASCP) Comment . [facility] INSURANCE BILL Note [facility] INSURANCE BILL Comment: The Pap smear is a screening test designed to aid in the detection of premalignant and malignant conditions of the uterine cervix. It is not a diagnostic procedure and should not be used as the sole means of detecting cervical cancer. Both false-positive and false-negative reports do occur. . [facility] CPT Code Automation [facility] INSURANCE BILL Comment: This liquid based ThinPrep(R) pap test was screened with the use of an image guided system. Human papillomavirus Other hr types Negative Negative [facility] INSURANCE BILL Human papillomavirus 16 Negative Negative [facility] INSURANCE BILL Human papillomavirus 18 Negative Negative [facility] INSURANCE BILL Comment: This test detects fourteen high-risk HPV types: HPV16, HPV18 and twelve other high-risk types (31, 33, 35, 39, 45, 51, 52, 56, 58, 59, 66, 68) without differentiation. Chlamydia trachomatis MALCOLM Negative Negative [facility] INSURANCE BILL GC DNA Probe Negative Negative [facility] INSURANCE BILL MICROSCOPIC CYTOLOGIC EXAMINATION OF SMEAR OF SPECIMEN FROM FEMALE GENITAL TRACT PREPARED USING PAPANICOLAOU TECHNIQUE / Unknown 01/02/2016 12:06 PM CDT 01/03/2016 12:41 PM CDT Narrative [facility] INSURANCE BILL - 01/09/2016 5:13 PM CDT No. of containers..01 CYTYC Thin Prep Vial Resulting Agency Comment [address] [phone] Shelbi Ortiz MD LAB - PATHOLOGY/CYTO LOGY ORDERABLES [facility] INSURANCE BILL * (ABNORMAL) COMPREHENSIVE METABOLIC PANEL (11/06/2010 10:23 PM POLE SHAVER) BUN 14 7.0 - 17.0 mg/dl [facility] Sodium 138 137 - 145 mmol/L [facility] Potassium 3.4(L) 3.6 - 5.0 mmol/L [facility] Chloride 106 98.0 - 107.0 mmol/L [facility] Glucose 81 70 - 105 mg/dl [facility] Creatinine 1.0 0.52 - 1.05 mg/dl [facility] AST 19 14.0 - 36.0 U/L [facility] Alkaline Phosphatase 78 38.0 - 126.0 U/L [facility] Calcium 9.2 8.4 - 10.2 mg/dl [facility] Bilirubin Total 0.3 0.2 - 1.3 mg/dl [facility] Albumin 4.1 3.5 - 5.0 gm/dl [facility] Protein Total 6.9 6.3 - 8.2 gm/dl [facility] CO2 22 22.0 - 30.0 mEq/L [facility] ALT 15 9.0 - 52.0 U/L [facility] eGFR by MDRD 65.55 ml/min/1.7 3m2 [facility] BLOOD SPECIMEN / Unknown 11/06/2010 10:23 PM POLE SHAVER 11/06/2010 10:23 PM POLE SHAVER Narrative [facility] - 11/06/2010 10:45 PM POLE SHAVER Perform for patients with UPPER abd* Sakina RENE [facility] - CHEMISTRY ZITA MCELROY [facility] [address] [place] [address] from Last 3 Months or Most Recently Relevant to Health Maintenance Care Teams Farm Boss Relationship Specialty Start Date End Date Armani Espinosa MD [address] [place] [address] PCP - General Family Medicine 02/20/23
--- OUTSIDE RECORDS SUMMARY | 2024-12-10 08:38 | XMS_ITS | Encounter Summary ---
Author Organization [facility] Health Address [address] [place] [address] Care Team Providers Care Full Stack Software Developer Name Role Phone Elis Crowe Primary Care Provider Armani Jeronimo MD Primary Care Provider [phone] Encounter Details Date Type Department Care Team (Late st Contact Info) Description 02/05/2017 [facility] Outpatient Visit [facility] [address] [place] [address] [place] [phone] [address] Social History Tobacco Use Types Packs/Day Years Used Date Smoking Tobacco: Every Day Cigarettes 0.3 20 Smokeless Tobacco: Never Alcohol Use Standard Drinks/Week Comments Yes 0 (1 standard drink = 0.6 oz pur e alcohol) social Sex and Gender Information Value Date Recorded Sex Assigned at Female 11/05/2022 2:51 PM MOBILE DEVELOPER Gender Identity Female 11/05/2022 2:51 PM MOBILE DEVELOPER Sexual Orientation Straight 11/05/2022 2: 51 PM MOBILE DEVELOPER documented as of this encounter Plan of Treatment Not on file documented as of this encounter Visit Diagnoses Not on filedocumented in this encounter Care Teams Full Stack Software Developer Relationship Specialty Start Date End Date Elis Crowe 2017 PCP - General 11/06/10 02/19/23 Armani Espinosa MD [address] [place] [phone] PCP - General Family Medicine 02/20/23 documented as of this encounter
--- OUTSIDE RECORDS SUMMARY | 2024-12-10 08:38 | XMS_ITS | Clinical Summary ---
Author Organization [facility] Address [facility] [place] [address] Care Team Providers Care Shank Maker Name Role Phone Unavailable Primary Care Provider Unavailabl e Social History Tobacco Use Types Packs/Day Years Used Date Smoking Tobacco: Never Assessed Comments Unknown Sex and Gender Information Value Date Recorded Sex Assigned at Not on file Legal Sex Female 12:13 PM SHIFT SUPERVISOR RN Gender Identity Not on file Sexual Orientation Not on file Plan of Treatment Health Maintenance Due Date Last Done Comments Cervical Cancer Screening Pa p Smear (Age 30 to 64) Every 3 Years 1981 Annual Physical 1984 Hepatitis C 1999 DTaP, Tdap and Td Vaccines ( 1 - Tdap) 2000 Hepatitis B Vaccines (1 of 3 - 19+ 3-dose series) 2000 Cervical Cancer Screening Pa p with HPV Testing (Age 30 to 64) Every 5 Years 2011 Cervical Cancer Screening with HPV 2011 Mammogram Screening 2021 COVID-19 Vaccine ( - 2023-2 5 season) 2024 HPV Vaccines Aged Out No longer eligi ble based on patient's age to complete this topic Meningococcal B Vaccine Aged Out No l onger eligible based on patient's age to complete this topic Meningococcal Vaccine Aged Out No justin leonardo eligible based on patient's age to complete this topic Pneumococcal Vaccine: Pediat rics (0 to 5 Years) and At-Risk Patients (6 to 64 Years) Aged Out No longer eligible b ased on patient's age to complete this topic RSV Immunizations Under 20 Months Aged Out No longer eligible based on patient's age to complete this topic
--- OUTSIDE RECORDS SUMMARY | 2024-12-10 08:38 | XMS_ITS | Encounter Summary ---
Author Organization [facility] Address [address] [place] [address] Care Team Providers Care Clinical Nurse Educator Name Role Phone Unavailable Primary Care Provider Unavailabl e Encounter Details Date Type Department Care Team (Late st Contact Info) Description 04/13/2009 Outpatient Historical [facility] [place], Authorized P NO ADDRESS ON FILE Toijhony Abdoul, DO [address] [place] [address] Nondependent Alcohol Abuse, Unspecified Drinking Behavior; Depressive Disorder, not Elsewhere Classified Social History Tobacco Use Types Packs/Day Years Used Date Smoking Tobacco: Never Assessed Comments Unknown Sex and Gender Information Value Date Recorded Sex Assigned at Not on file Legal Sex Female 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 Gender Identity Not on file Sexual Orientation Not on file documented as of this encounter Plan of Treatment Not on file documented as of this encounter Procedures Procedure Name Priority Date/Time Associated Diagnosis Comments DRUGS OF ABUSE W/REFLEX THC QUANT Stat 04/13/2009 11:37 PM CDT URINALYSIS W/REFLEX MICROSCOPIC Stat 04/13/2009 11:37 PM CDT ETHANOL LEVEL Stat 04/13/2009 11:37 PM CDT ED HOLD Stat 04/13/2009 11:11 PM CDT CBC WITH DIFFERENTIAL Stat 04/13/2009 11:11 PM CDT ACETAMINOPHEN LEVEL Stat 04/13/2009 1 1:11 PM CDT SALICYLATE LEVEL Stat 04/13/2009 11:1 1 PM CDT COMPREHENSIVE METABOLIC PANEL Stat 04/13/2009 11:11 PM CDT documented in this encounter Results * ETHANOL LEVEL (04/13/2009 11:37 PM CDT) ETHANOL 231 mg/dL [facility] Comment:Reference Range: les s than 10 mg/dL. Blood specimen (specimen) 04/13/2009 11:37 PM CDT 04/13/2009 11:46 PM CDT us Abdoul Melvin DO CHEMISTRY ORDERABLES Final R esult [facility] CLIA# [id number] [address] [place] [address] * DRUGS OF ABUSE W/REFLEX THCSQ (04/13/2009 11:37 PM CDT) COMMENT, TOXICOLOGY See Separate Comment [facility] Comment: Urine sample was not handled as a legal specimen and was received without a chain of custody. The result should be used only for medical purposes. False positive and erroneous results can occur due to cross-reacting substances and other factors. Depending on the clinical context, confirmation of all presumptive positive results by a more specific alternate method is recommended. A negative result indicates the analyte, if present, is below the screening threshold. Drug Ref. Range Screening Threshold Amphetamines Negative 1000 ng/mL Barbiturates Negative 200 ng/mL Benzodiazepines Negative 300 ng/mL Cannabinoids Negative 50 ng/mL Cocaine Metabolites Negative 300 ng/mL Opiates Negative 300 ng/mL Phencyclidine Negative 25 ng/mL The cut-off threshold, known cross-reactive compounds, drugs,and specificity information for each of the urine drugs of abuse are available on the [facility] Intranet at: [email or web address] Select: Lab Policies & Procedures Select: Drugs of Abuse-[facility] To inquire about any potential cross-reactivity of a specific drug not listed at this site, please contact the Chemistry Lab at . AMPHETAMINE QUAL, URINE Negative Negative [facility] BARBITURATE QUAL, URINE Negative Negative [facility] BENZODIAZEPINE QUAL, URINE Negative Negative [facility] CANNABINOIDS QUAL, URINE Negative Negative [facility] COCAINE QUAL URINE Negative Negative [facility] OPIATE QUAL, URINE Negative Negative [facility] PCP QUAL, URINE Negative Negative [facility] Urine specimen (specimen) 04/13/2009 11:37 PM CDT 04/13/2009 11:46 PM CDT us Abdoul Melvin DO URINE ORDERABLES Edited [facility] CLIA# [id number] [address] [facility] [address] * URINALYSIS (04/13/2009 11:37 PM CDT) LEUKOCYTE ESTERASE UA Negative Negative [facility] SPECIFIC GRAVITY UA 1.001 1.001 - 1.035 [facility] BLOOD UA Negative Negative [facility] GLUCOSE UA Negative Negative [facility] COLOR UA Colorless [facility] NITRITE UA Negative Negative [facility] UROBILINOGEN UA <1 <=1 mg/dL [facility] PH UA 5.0 5.0 - 8.0 [facility] KETONES UA Negative Negative [facility] CLARITY UA Clear Clear [facility] PROTEIN UA Negative Negative [facility] BILIRUBIN UA Negative Negative [facility] Urine specimen (specimen) 04/13/2009 11:37 PM CDT 04/13/2009 11:41 PM CDT us Abdoul Melvin DO URINE ORDERABLES Final Resul t Performing Organization Address [facility] Co de Phone Number [facility] CLIA# [id number] [address] [place] [address] * (ABNORMAL) SALICYLATE LEVEL (04/13/2009 11:11 PM CDT) SALICYLATE LEVEL <0.8(L) 2.0 - 25.0 mg/dL [facility] Blood specimen (specimen) 04/13/2009 11:11 PM CDT 04/13/2009 11:46 PM CDT us Abdoul Melvin DO CHEMISTRY ORDERABLES Final R esult Performing Organization Address [facility] Co de Phone Number [facility] CLIA# [id number] [address] [place] [address] * (ABNORMAL) COMPREHENSIVE METABOLIC PANEL (04/13/2009 11:11 PM CDT) CHLORIDE 108 96 - 108 mmol/L [facility] ALBUMIN 4.5 3.4 - 4.8 g/dL [facility] CREATININE 0.69 0.51 - 0.95 mg/dL [facility] SODIUM 142 135 - 145 mmol/L [facility] ALT 17 0 - 31 U/L [facility] ALKALINE PHOSPHATASE 50 35 - 104 U/L [facility] BILIRUBIN TOTAL 0.3 0.2 - 1.0 mg/dL [facility] CO2 21(L) 22 - 30 mmol/L [facility] TOTAL PROTEIN 7.5 6.3 - 8.6 g/dL [facility] POTASSIUM 3.7 3.5 - 4.9 mmol/L [facility] GLUCOSE 102(H) 65 - 99 mg/dL [facility] AST 23 12 - 32 U/L [facility] BUN 8 6 - 20 mg/dL [facility] CALCIUM 8.7 8.6 - 10.2 mg/dL [facility] GFR, >60 >=60 mL/min/1. 7 sq meter [facility] GFR >60 >=60 mL/min/1. 7 sq meter [facility] Comment: Modification of Diet in Renal Disease (MDRD) study formula. Estimated GFR rate interpretative information for both Americans and non- Americans is available on the [facility] Intranet at: [email or web address] Select: Lab Policies and Procedures Select: Reference Ranges - GFR Blood specimen (specimen) 04/13/2009 11:11 PM CDT 04/13/2009 11:46 PM CDT Abdoul Melvin DO CHEMISTRY ORDERABLES Edited [facility] CLIA# [id number] [address] [place] [address] * (ABNORMAL) CBC WITH DIFFERENTIAL (04/13/2009 11:11 PM CDT) RDW 12.4 11.5 - 14.5 % [facility] WBC 9.4 4.0 - 9.8 K/uL [facility] MCH 33.0(H) 27.2 - 32.6 pg [facility] MPV 11.1 9.3 - 12.4 fL [facility] HEMATOCRIT 41.3 35.5 - 44.0 % [facility] RDW-STDEV 42.0 37.1 - 48.7 fL [facility] RBC 4.42 3.90 - 4.90 M/uL [facility] MCHC 35.4 31.5 - 35.5 % [facility] MCV 93.4 82.0 - 99.0 fL [facility] PLATELETS 263 140 - 350 K/uL [facility] HEMOGLOBIN 14.6 11.8 - 14.8 g/dL [facility] LYMPHOCYTES 28 16 - 45 % [facility] LYMPHOCYTE ABSOLUTE 2.62 0.70 - 4.50 K/uL [facility] BASOPHILS 0 0 - 2 % [facility] BASOPHILS ABSOLUTE 0.02 0.00 - 0.20 K/uL [facility] MONOCYTES 5 3 - 13 % [facility] MONOCYTE ABSOLUTE 0.46 0.10 - 1.30 K/uL [facility] NEUTROPHILS 64 45 - 70 % [facility] NEUTROPHIL ABSOLUTE 6.01 1.90 - 7.00 K/uL [facility] EOSINOPHILS 3 0 - 7 % [facility] EOSINOPHIL ABSOLUTE 0.24 0.00 - 0.70 K/uL [facility] Blood specimen (specimen) 04/13/2009 11:11 PM CDT 04/13/2009 11:46 PM CDT us Abdoul Melvin DO HEMATOLOGY ORDERABLES Edited [facility] CLIA# [id number] [address] [place] [address] * (ABNORMAL) ACETAMINOPHEN LEVEL (04/13/2009 11:11 PM CDT) ACETAMINOPHEN LEVEL 9.4(L) 10.0 - 20.0 ug/mL [facility] Blood specimen (specimen) 04/13/2009 11:11 PM CDT 04/13/2009 11:46 PM CDT us Abdoul Melvin DO CHEMISTRY ORDERABLES Edited Performing Organization Address City/[facility]/ZIP Co de Phone Number [facility] CLIA# [id number] [address] [place] [address] * ED HOLD (04/13/2009 11:11 PM CDT) SPECIMEN HOLD, BLOOD 7 days [facility] Blood specimen (specimen) 04/13/2009 11:11 PM CDT 04/13/2009 11:23 PM CDT us Authorized P Er CHEMISTRY ORDERABLES Final Resul t Performing Organization Address [facility] Co de Phone Number [facility] CLIA# [id number] [address] [place] [address] documented in this encounter Visit Diagnoses Diagnosis Alcohol abuse, unspecified Depressive disorder, not elsewhere classified documented in this encounter
--- OUTSIDE RECORDS SUMMARY | 2024-12-10 08:38 | XMS_ITS | Data Portability ---
Author Organization [place] [facility], Main Office Address [address] [place] [address] Care Team Providers Care Head Of Art Name Role Phone ARMANI ESPINOSA Primary Care Provider Assessment Encounter Date Assessment Date Assessment LastModified by Organization Details LastModified Time 08/19/2024 08/19/2024 43 yo F with - HLD, uncontrolled - ELEVATED BP; stable - ADD - INSOMNIA, Chronic - ALLERGIC RHINITIS - GERD - ELEVATED LFTs - MILD PERSISTENT ASTHMA - CHRONIC CONSTIPATION - VIT D DEFICIENCY - OBESITY III - SMOKER - H/O LEUKOCYTOSIS - H/O ABNORMAL MAMMO Annual labs: 10/13/23. Annual labs: 07/22/22. US Abdo: 08/02/20. CXR: 08/02/20. Sleep study: 06/05/20. Hepatitis panel: 05/10/20. Annual labs: 04/10/20. D/w pt in detail about her findings, recent labs & imagines and [place] care[place]. Meds as directed. OTC ankle sleeve & shoe insert as directed prn. Diet and exercise explained in detail. Educated about different options for her. BP diary education given and call us if any concerns. Pt has cut down smoking to 0.25 - 0.5 ppd. Encouraged pt to quit smoking. Discussed in detail about different options to quit smoking including Wellbutrin, Nicotine patch, Nicotine gum/lozenges etc. Educated pt about alarming symptoms to monitor at home and call us back or get checked in ED. Cont f/u with Breast surgeon at [facility] as per schedule. Cont f/u with Gyne as per schedule. Cont f/u with Derm at [place] as per schedule. Advised to refer to Psych; but pt declined. Advised to refer to [facility]; but pt declined. Wegovy, Zepbound, Contrave are not covered by her insurance. HM: WWE - 07/22, normal as per pt. Cont f/u with Gyne as per schedule. Mammo - 12/23, normal as per pt. Pt is f/u with breast surgeon at [facility]. Flu - Pt declined. Tdap - 05/24. Hep B - Pt declined. F/u in 2 months. Annual labs in 09/25. [email or web address] Not available 08/19/2024 17:38:33 10/12/2024 10/12/2024 The patient gave verbal consent using TeleHealth services and the consent is documented in the medical record prior to using the service. The patient has been informed of what a TeleMedicine visit is. Patient is located at home. Provider is located at office. Names and roles of persons in addition to the patient and provider participating in telemedicine services include staff. The patient had a 10 minute TeleMedicine consultation via [employer] to discuss the following: Not available 10/12/2024 17:53:25 10/19/2024 10/19/2024 44 yo F with - WELL ADULT VISIT - HLD - ELEVATED BP; stable - ADD - INSOMNIA, Chronic - ALLERGIC RHINITIS - GERD - ELEVATED LFTs - MILD PERSISTENT ASTHMA - CHRONIC CONSTIPATION - VIT D DEFICIENCY - OBESITY III - SMOKER - H/O LEUKOCYTOSIS - H/O ABNORMAL MAMMO Annual labs: 10/13/23. Annual labs: 07/22/22. US Abdo: 08/02/20. CXR: 08/02/20. Sleep study: 06/05/20. Hepatitis panel: 05/10/20. Annual labs: 04/10/20. D/w pt in detail about her findings, recent labs & imagines and further plan of care. Will do random UDS today. Last dose today morning. [place] do routine labs. [place] Meds as directed. Cont OTC ankle sleeve & shoe insert as directed prn. Diet and exercise explained in detail. Educated about different options for her. BP diary education given and call us if any concerns. Pt has cut down smoking to 0.25 - 0.5 ppd. Encouraged pt to quit smoking. Discussed in detail about different options to quit smoking including Wellbutrin, Nicotine patch, Nicotine gum/lozenges etc. Educated pt about alarming symptoms to monitor at home and call us back or get checked in ED. Cont f/u with Breast surgeon at [facility] as per schedule. Cont f/u with Gyne as per schedule. Cont f/u with Derm at [place] as per schedule. Advised to refer to Psych; but pt declined. Advised to refer to [facility]; but pt declined. Wegovy, Zepbound, Contrave are not covered by her insurance. HM: WWE - 07/22, normal as per pt. Cont f/u with Gyne as per schedule. Mammo - 07/25, normal as per pt. Pt is f/u with breast surgeon at [facility]. Flu - Pt declined. Tdap - 05/24. Hep B - Pt declined. F/u in 1 month. Annual labs in 10/27. [email or web address] Not available 10/19/2024 17:46:51 12/06/2024 12/06/2024 The patient gave verbal consent using TelePhonic services and the consent is documented in the medical record prior to using the service. The patient has been informed of what a TeleMedicine visit is. Patient is located at home. Provider is located at office. Names and roles of persons in addition to the patient and provider participating in telemedicine services include staff. The patient had a 11 minute TeleMedicine consultation via phone call to discuss the following: [email or web address] Not available 12/06/2024 13:59:38 Plan of Treatment Reminders Order Date Submit Date Provider Last Modified By Organization Details Last Modified Time Details Appointments Any 30 2024 04:00P M FRANCIA Zhou Not available Not available Not available Any 15 2024 04:30P M Armani Espinosa MD Not available Not available Not available Lab uric acid, serum or plasma 2024 025 [email or web address] [facility], 2022 Jamila Muñoz, [address], [address], 10/29/2024 11:57:58 drug screen, urine - To check for listed controlle d medicatio n 2024 025 [email or web address] [facility] (Lab), [address] [place], [address], 10/22/2024 09:18:25 CBC w/ auto diff 2024 [email or web address] [facility], 2022 Jamila Muñoz, [address], [place], [address], 10/29/2024 11:57:57 CMP, serum or plasma 2024 [facility], 20[address] Jamila Muñoz, [address], [place], [address], 10/29/2024 11:57:57 lipid panel, serum 2024 [email or web address] [facility], 2022 Jam[address] Mu[address]oz, [address], [place], [address], 10/29/2024 11:57:57 TSH, serum, reflex free T4 2024 [email or web address] [facility], [address]22 Jam[address] Mu[address]oz, [address], [place], [address], 10/29/2024 11:57:57 urinalysi s complete, reflex culture 2024 [email or web address] [facility], [address] Jamila Muñoz, [address], [place], [address], 10/29/2024 11:57:57 HbA1c (hemoglob in A1c), blood 2024 [email or web address] [facility], [address] Mu[address]oz, [address], [place], [address], 10/29/2024 11:57:58 vitamin D, 25-hydrox y, total, serum 2024 [email or web address] [facility], 2022 Jamila Mu[address]oz, [address], [place], [address], 10/29/2024 11:57:58 Referral None recorded. Procedures None recorded. Surgeries None recorded. Imaging None recorded. Medication Orders amoxicill in 875 mg-potass ium clavulana te 125 mg tablet 2024 025 [facility] #64072, [address] [facility] [facility], [place], [place], [id number], 12/06/2024 14:05:08 prednison e 10 mg tablet 2024 025 [facility] #49846, [address], [place], [place], [id number], 12/06/2024 14:05:06 benzonata te 200 mg capsule 2024 025 [facility] #21701, [address], [place], [place], [id number], 12/06/2024 14:05:05 metformin ER 500 mg tablet,ex tended release 24 hr 2024 025 [facility] #06716, [address], [place], [place], [id number], 10/19/2024 17:37:58 atorvasta tin 10 mg tablet 2024 025 [facility] #66973, [address] [address], [place], [place], [id number], 10/19/2024 17:37:59 dextroamp hetamine- amphetami ne 30 mg tablet 2024 025 [facility] #45650, [address], [place], [place], [id number], 10/19/2024 17:38:00 docusate sodium 100 mg capsule 2024 025 [facility] #26687, [address] [address], [place], [place], [id number], 10/19/2024 17:38:04 polyethyl rekha glycol 3350 17 gram/dose oral powder 2024 [facility] #18017, [address] [address], [place], [place], [id number], 10/19/2024 17:37:58 Zepbound 2.5 mg/0.5 mL subcutane ous pen injector 2024 025 [facility] #41836, [address] [facility] [facility], [place], [place], [id number], 10/19/2024 17:38:29 pantopraz ole 20 mg tablet,de layed release 2024 025 [facility] #41166, [address] [facility], [place], [place], [id number], 10/19/2024 17:38:01 benzonata te 200 mg capsule 2024 025 [facility] #69315, [address] [facility], [place], [place], [id number], 10/12/2024 17:52:08 albuterol sulfate HFA 90 mcg/actua tion aerosol inhaler 2024 025 [facility] #38675, [address] [facility], [place], [place], [id number], 10/12/2024 17:52:01 Paxlovid 300 mg (150 mg x 2)-100 mg tablets in a dose pack [id number] [facility] [address] [facility] #27777, [address] [place], [place], [id number], 12/06/2024 14:01:10 dexametha sone 6 mg tablet [id number] [facility] [address] [facility] #27884, [address] [place], [place], [id number], 12/06/2024 14:00:59 azithromy marielena 250 mg tablet 2024 025 [facility] #62062, [address] [facility], [place], [place], [id number], 10/12/2024 17:46:05 Medrol (Meño) 4 mg tablets in a dose pack 2024 025 [facility] #97603, [address] [facility], [place], [place], [id number], 10/12/2024 17:46:14 benzonata te 200 mg capsule 2024 025 [facility] #44466, [address] [facility], [place], [place], [id number], 09/09/2024 14:10:29 Solu-Medr ol (PF) 125 mg/2 mL solution for injection 2024 025 [email or web address] Not available 10/12/2024 17:46:25 albuterol sulfate HFA 90 mcg/actua tion aerosol inhaler 2024 025 [facility] #75438, [address] [facility], [place], [place], [id number], 09/09/2024 14:10:29 cetirizin e 10 mg tablet 2023 024 [facility] #60731, [address] [facility], [place], [place], [id number], 08/19/2024 17:25:55 metformin ER 500 mg tablet,ex tended release 24 hr 2023 024 [facility] #17462, [address] [facility], [place], [place], [id number], 08/19/2024 17:25:53 atorvasta tin 10 mg tablet 2023 [facility] #15768, [address] [facility], [place], [place], [id number], 08/19/2024 17:25:54 dextroamp hetamine- amphetami ne 30 mg tablet 2023 [facility] #64278, [address] [facility], [place], [place], [id number], 08/19/2024 17:25:58 docusate sodium 100 mg capsule 2023 [facility] #12265, [address] [facility], [place], [place], [id number], 08/19/2024 17:25:52 polyethyl rekha glycol 3350 17 gram/dose oral powder 2023 [facility] #80065, [address] [facility], [place], [place], [id number], 08/19/2024 17:25:51 pantopraz ole 20 mg tablet,de layed release 2023 [facility] #52352, [address] [facility], [place], [place], [id number], 08/19/2024 17:25:52 Patient TargetsNo targets recorded. Patient Instructions Encounter Date Encounter Id Patient Instructions Last Modified By Organization Details Last Modified Time 08/19/2024 [id number] learning about obesity [email or web address] Not available 08/19/2024 17:25:43 starting a weigh t loss plan: care instructions [email or web address] Not available 08/19/2024 17:25:43 10/12/2024 [id number] Due to the COVID-19 (Novel Coronavirus) pandemic, it is within this context (and with the understanding that this method of patient encounter is in the patient s best interest as well as the health and safety of other patients and the public) that t elehealth is being provided for this patient encounter rather than a elgc-vs-jtxm visit. This patient encounter is appropriate at this time. This patient has been advised of the potential risks and limitations of this mode of treatment (including, but not limited to, the absence of in-person examination) and has agreed to be treated in a remote fashion despite these risks. Any and all of the patient s /patient s family s questions on this issue have been answered, and I have made no promises or guarantees to the patient. The patient has also been advised to contact this office for worsening conditions or problems, and seek emergency medical treatment and/or call 911 if the patient deems either necessary. HPI and/or vitals, if listed, were provided by the patient. Not available 10/12/2024 17:43:45 10/19/2024 [id number] learning about obesity [email or web address] Not available 10/19/2024 17:37:50 starting a weigh t loss plan: care instructions [email or web address] Not available 10/19/2024 17:37:49 12/06/2024 [id number] Due to the COVID-19 (Novel Coronavirus) pandemic, it is within this context (and with the understanding that this method of patient encounter is in the patient s best interest as well as the health and safety of other patients and the public) that t elehealth is being provided for this patient encounter rather than a npnk-vh-hjcz visit. This patient encounter is appropriate at this time. This patient has been advised of the potential risks and limitations of this mode of treatment (including, but not limited to, the absence of in-person examination) and has agreed to be treated in a remote fashion despite these risks. Any and all of the patient s /patient s family s questions on this issue have been answered, and I have made no promises or guarantees to the patient. The patient has also been advised to contact this office for worsening conditions or problems, and seek emergency medical treatment and/or call 911 if the patient deems either necessary. HPI and/or vitals, if listed, were provided by the patient. [email or web address] Not available 12/06/2024 13:59:07 Reason for Referral None Reported. Results Created Date Observation Date Name Description Value Unit Range Abnormal Flag Note LastModifiedBy Organization Detail LastModifiedTime Result Notes None recorded. Problems Name Problem SNOMED Code Status Onset Date Resolution Date Notes Provider Name and Address Organization Details Recorded Time Leukocyto sis 139075910 Active 2020 Not Available [facility] 3 02:33:14 Folliculi tis 73911723 Active 2021 Not Available [facility] 3 02:33:14 Bilateral earache 564719549 Active 2021 Not Available [facility] 3 02:33:14 Mammograp hy abnormal 896027613 Active 2021 Not Available [facility] 3 02:33:14 Asthma 178108695 Completed 201904/10/2020 Not Available [facility] 3 02:33:14 Skin tag 503818606 Active 2019 Not Available [facility] 3 02:33:14 Herpesvir us infection 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 Not Available [facility] 3 02:33:15 Gastroeso phageal reflux disease without esophagit is 844463316 Active 2019 Not Available [facility] 3 02:33:15 Vitamin D deficienc y 89391502 Active 2019 Not Available [facility] 3 02:33:15 Attention deficit hyperacti vity disorder, predomina ntly inattenti ve type 34401197 Active 2019 Not Available [facility] 3 02:33:15 Seasonal allergic rhinitis 058569123 Active 2019 Not Available [facility] 3 02:33:15 Elevated blood-pre ssure reading without diagnosis of hypertens ion 828367948 Active 2021 Not Available [facility] 3 02:33:15 Attention deficit hyperacti vity disorder 238598567 Completed 201904/10/2020 Not Available [facility] 3 02:33:15 Obesity 577144710 Active 2019 Not Available [facility] 3 02:33:15 Mild persisten t asthma 000617724 Active 2019 Not Available [facility] 3 02:33:15 Upper respirato ry infection 73454300 Active 2021 Not Available [facility] 3 02:33:15 Hyperlipi demia 65770160 Active 2021 Not Available [facility] 3 02:33:15 Female stress incontine nce 43055830 Active 2020 Not Available [facility] 3 02:33:15 Allergic rhinitis 26088884 Active 2019 Not Available [facility] 3 02:33:16 Nasal congestio n 20878522 Active 2021 Not Available [facility] 3 02:33:16 Closed fracture of head of radius 27251429 Completed Not Available [facility] 3 02:33:16 Liver enzymes level above reference range 710781469 Active 2019 Not Available [facility] 3 02:33:16 Chronic insomnia 872774993 Active 2019 Not Available [facility] 3 02:33:16 Smoker 13393296 Active 2019 Not Available [facility] 3 02:33:16 Hypersomn ia with sleep apnea 92979413 Active 2019 Not Available [facility] 3 02:33:16 Insulin resistanc e 119963501 Active 2022 Armani Espinosa MD [address], [address], [place], [address] , [facility] [employer] [facility] 3 17:27:49 Chronic idiopathi c constipat ion 46589678 Active 2023 Armani Espinosa MD [address], [address], [place], [address] , [facility] [employer] [facility] 4 17:34:25 Urinary tract infectiou s disease 45604347 Active 2023 Armani Espinosa MD [address], [address], [place], [address] , [facility] 4 09:42:29 Pain of left ankle joint [id number] 521687 Active 2023 Armani Espinosa MD [address], [place], [address] , [facility] 4 17:12:28 Cough 28803352 Active 2023 Armani Espinosa MD [address], [place], [address] , [facility] 4 15:11:14 Fatigue 76541965 Active 2023 Armani Espinosa MD [address], [place], [address] , [facility] 4 15:11:27 Bronchiti s 63110281 Active 2023 Armani Espinosa MD [address], [place], [address] , [facility] 4 15:13:54 Bacterial conjuncti vitis 935253346 Active 2023 Armani Espinosa MD [address], [place], [address] , [employer] 4 12:46:35 Acute conjuncti vitis 21944453 Active 2023 Armani Espinosa MD [address], [place], [address] , [facility] 4 12:46:59 Problem Notes None recorded. Procedures Surgical History Date Name Laterality Status Provider Name and Address Organization Details Recorded Time 5 Smoking Cessation completed MD Faraz [address], [place], [address], [employer] 10/19/2024 14:48:21 4 Smoking Cessation completed MD Faraz [address], [place], [address], [facility] 08/19/2024 17:38:42 4 Smoking Cessation completed Armani Espinosa MD [address], [address], [place], [address], [facility] 04/20/2024 17:27:47 3 Smoking Cessation completed Armani Espinosa MD [address], [address], [place], [address], [facility] 07/21/2023 17:30:50 3 Smoking Cessation completed Armani Espinosa MD [address], [address], [place], [address], [facility] 01/16/2023 17:32:55 3 Smoking Cessation completed Armani Espinosa MD [address], [address], [place], [address], [facility] 11/18/2022 17:19:56 8 Hernia Repair completed Not Available [facility] 2022 02:30:05 Imaging Results None recorded. Procedure Notes None recorded. Medical Equipment None Reported. Allergies No known drug allergies Medications Name Sig Start Date Stop Date Status Note LastModified by Organization Details LastModified Time [facility] 6.25 mg-15 mg/5 mL oral syrup Take 5 mL every 4 hours by oral route as needed for 10 days. 2024 active Not Available Not Available Not Avai lable fluticason e 250 mcg-salmet desmond 50 mcg/dose blistr powdr for inhalation INHALE 1 PUFF BY MOUTH TWICE DAILY DIRECTED active Not Available Not Available No t Available prednisone 10 mg tablet Take 1 tablet every day by oral route as directed for 7 days. 2024 active Not Available Not Available Not Avai lable cefuroxime axetil 250 mg tablet 04/10 completed Not Available Not Available Not Available nicotine 14 mg/24 hr daily transderma l patch APPLY 1 PATCH EXTERNAL LY TO THE SKIN EVERY DAY DIRECTED active Not Available Not Available No t Available tizanidine 2 mg tablet 05/21 completed Not Available Not Available Not Available trazodone 50 mg tablet TK 1 T PO QD HS active Not Available Not Available No t Available cetirizine 10 mg tablet TAKE ONE TABLET BY MOUTH DAILY NEEDED active Not Available Not Available No t Available atorvastat in 10 mg tablet TAKE 1 TABLET BY MOUTH EVERY DAY AT BEDTIME active Not Available Not Available No t Available azithromyc in 250 mg tablet TAKE 2 TABLETS (500 MG) BY ORAL ROUTE ONCE DAILY FOR 1 DAY THEN 1 TABLET (250 MG) BY ORAL ROUTE ONCE DAILY FOR 4 DAYS 10/12 completed Not Available Not Available Not Available benzonatat e 200 mg capsule Take 1 capsule every 8 hours by oral route as needed for 10 days. 2024 active Not Available Not Available Not Avai lable ondansetro n HCl 8 mg tablet TAKE 1 TABLET BY MOUTH TWICE DAILY NEEDED 05/21 completed Not Available Not Available Not Available phenazopyr idine 200 mg tablet TK 1 T PO BID 04/10 completed Not Available Not Available Not Available prednisone 20 mg tablet Take 2 tabs PO twice daily for 2 days; 1 tab PO twice daily for 5 days; 1/2 tab PO twice daily for 2 days; 1/2 tab PO once for 1 day. TAKE 2ND DOSE EVERYDAY AT NOON-10 DAY COURSE 2024 active Not Available Not Available Not Avai lable dextroamph etamine-am phetamine 10 mg tablet Take 3 tablets twice a day by oral route as directed for 30 days. active Not Available Not Available No t Available dexamethas one 6 mg tablet TAKE 1/2 TABLET BY MOUTH TWICE DAILY FOR 7 DAYS DIRECTED 12/06 completed Not Available Not Available Not Available ciprofloxa marielena 500 mg tablet TK ONE T PO BID for 7 days 12/24 completed Not Available Not Available Not Available sulfametho xazole 800 mg-trimeth oprim 160 mg tablet TAKE 1 TABLET BY MOUTH EVERY 12 HOURS FOR 5 DAYS 05/21 completed Not Available Not Available Not Available ondansetro n 8 mg disintegra ting tablet DISSOLVE 1 TABLET ON THE TONGUE TWICE DAILY 07/22 completed Not Available Not Available Not Available pantoprazo le 20 mg tablet,del ayed release TAKE 1 TABLET BY MOUTH EVERY MORNING 30 TO 45 MINUTES BEFORE BREAKFAS T active Not Available Not Available No t Available dextroamph etamine-am phetamine 30 mg tablet TAKE 1 TABLET BY MOUTH TWICE DAILY DIRECTED active Not Available Not Available No t Available alprazolam 0.25 mg tablet TAKE 1 TABLET BY MOUTH AT BEDTIME NEEDED FOR SLEEP active Not Available Not Available No t Available famotidine 20 mg tablet TAKE 1 TABLET BY MOUTH TWICE DAILY NEEDED active Not Available Not Available No t Available trazodone 100 mg tablet TAKE 1 TABLET BY MOUTH EVERY DAY AT BEDTIME active Not Available Not Available No t Available cephalexin 500 mg capsule TK 1 C PO TID FOR 7 DAYS UTD 05/21 completed Not Available Not Available Not Available dextroamph etamine-am phetamine 20 mg tablet Take 1 tablet every day by oral route as directed for 30 days. active Total dose = 30mg bid. Not Available Not Available Not Available polymyxin B sulfate 10,000 unit-trime thoprim 1 mg/mL eye drops INSTILL 1 DROP INTO AFFECTED EYE(S) BY OPHTHALM IC ROUTE EVERY 6 HOURS 10/12 completed Not Available Not Available Not Available mupirocin calcium 2 % topical cream APPLY TO THE AFFECTED AREA TWICE DAILY FOR SKIN INFECTIO N FROM EXISTING SKIN DISEASE 04/10 completed Not Available Not Available Not Available docusate sodium 100 mg capsule Take 1 capsule twice a day by oral route as directed for 90 days. 2024 active Not Available Not Available Not Avai lable amoxicilli n 250 mg capsule TK ONE C PO TID WITH GLASS OF WATER active Not Available Not Available No t Available montelukas t 10 mg tablet TAKE 1 TABLET BY MOUTH EVERY DAY IN THE EVENING DIRECTED active Not Available Not Available No t Available mupirocin 2 % topical ointment APPLY SMALL AMOUNT TOPICALL Y TO THE AFFECTED AREA THREE TIMES DAILY 05/21 completed Not Available Not Available Not Available norethindr one acetate 5 mg tablet TAKE 1 TABLET BY MOUTH EVERY DAY active Not Available Not Available No t Available ergocalcif desmond (vitamin D2) 1,250 mcg (50,000 unit) capsule TAKE 1 CAPSULE BY MOUTH EVERY WEEK DIRECTED active Not Available Not Available No t Available ibuprofen 600 mg tablet TAKE 1 TABLET BY MOUTH EVERY 6 HOURS NEEDED FOR PAIN 10/01 completed Not Available Not Available Not Available polyethyle ne glycol 3350 17 gram/dose oral powder Take 17 g every day by oral route as directed . 2024 active Not Available Not Available Not Avai lable methylpred nisolone 4 mg tablets in a dose pack Take 1 dose pk every day by oral route as directed for 6 days. 10/12 completed Not Available Not Available Not Available albuterol sulfate HFA 90 mcg/actuat ion aerosol inhaler INHALE 2 PUFFS BY MOUTH EVERY 6 HOURS NEEDED active Not Available Not Available No t Available norethindr one (contracep tive) 0.35 mg tablet TAKE 1 TABLET BY MOUTH EVERY DAY active Not Available Not Available No t Available oxybutynin chloride 5 mg tablet TAKE 1 TABLET BY MOUTH TWICE DAILY DIRECTED 02/18 completed Not Available Not Available Not Available ondansetro n 4 mg disintegra ting tablet TAKE 1 TABLET BY MOUTH EVERY 6 HOURS NEEDED FOR NAUSEA/V OMITING. ALLOW TABLET TO DISSOLVE ON THE TONGUE 12/06 completed Not Available Not Available Not Available fluticason e propionate 50 mcg/actuat ion nasal spray,susp ension SHAKE LIQUID AND USE 2 SPRAYS IN EACH NOSTRIL EVERY DAY DIRECTED active Not Available Not Available No t Available metformin ER 500 mg tablet,ext ended release 24 hr TAKE 1 TABLET BY MOUTH TWICE DAILY AFTER MEALS active Not Available Not Available No t Available amoxicilli n 875 mg-potassi um clavulanat e 125 mg tablet TAKE 1 TABLET BY MOUTH EVERY 12 HOURS FOR 7 DAYS 2024 active Not Available Not Available Not Avai lable nicotine 7 mg/24 hr daily transderma l patch Apply 1 patch every day by transder mal route as directed for 30 days. active Not Available Not Available No t Available neomycin-p olymyxin-h ydrocort 3.5 mg-10,000 unit/mL-1 % ear drops,susp INSTILL 4 DROPS INTO AFFECTED EAR(S) BY OTIC ROUTE 3 TIMES PER DAY active Not Available Not Available No t Available nitrofuran toin monohydrat e/macrocry stals 100 mg capsule TAKE 1 CAPSULE BY MOUTH EVERY 12 HOURS FOR 7 DAYS active Not Available Not Available No t Available chlorhexid ine gluconate 0.12 % mouthwash SWISH 1/2 OUNCE FOR 30 SECONDS TWICE DAILY DIRECTED active Not Available Not Available No t Available Chantix 0.5 mg tablet Take 1 tablet every 12 hours by oral route as directed for 30 days. active Not Available Not Available No t Available Symbicort 160 mcg-4.5 mcg/actuat ion HFA aerosol inhaler Inhale 2 puffs twice a day by inhalati on route as directed for 30 days. 2022 active Not Available Not Available Not Avai lable Solu-Medro l (PF) 125 mg/2 mL solution for injection Take 100 mg by injectio n route for 1 day. 10/12 completed pt annabella well Not Available Not Available Not Available Chantix Starting Month Box 0.5 mg (11)-1 mg (42) tablets in dose pack TK UTD active Not Available Not Available No t Available Contrave 8 mg-90 mg tablet,ext ended release Take by oral route for 30 days. 02/18 completed Denied on 12/18/23 Not Available Not Available Not Available ID NOW COVID-19 Test Kit TEST DIRECTED active Not Available Not Available No t Available Wegovy 0.25 mg/0.5 mL subcutaneo us pen injector Inject by subcutan eous route for 28 days. 02/18 completed Not Available Not Available Not Available Plenity (Welcome Kit) 0.75 gram capsule Take 3 capsules twice a day by oral route before meals for 30 days. 10/01 completed Not Available Not Available Not Available Paxlovid 300 mg (150 mg x 2)-100 mg tablets in a dose pack TAKE 3 TABLETS BY MOUTH TWICE DAILY 12/06 completed Not Available Not Available Not Available Zepbound 2.5 mg/0.5 mL subcutaneo us pen injector Inject 2.5 mg every week by subcutan eous route as directed for 30 days. 2024 active Not Available Not Available Not Avai lable Zepbound 2.5 mg/0.5 mL subcutaneo us solution ADMINIST ER 2.5 MG UNDER THE SKIN EVERY WEEK DIRECTED active Not Available Not Available No t Available Vitals Date Recorded Body height Body temperature Oxygen saturation Oxygen saturation in Arterial blood by Pulse oximetry Heart rate Provider Name and Address Organization Details Last Updated DateTime 4 160.02 cm 97.4 [degF] 96 % 96 % 99 /min Melva Sanchez RN [facility] 4 17:19:01 Date Recorded Body mass index (BMI) Body weight Systolic blood pressure Diastolic blood pressure Provider Name and Address Organization Details Last Updated DateTime 08/19/2024 44.5 kg/m2 173434.38 g 134 mm[Hg] 80 mm[Hg] Armani Espinosa MD [address], [place], [address] , [employer] [facility] 08/19/2024 17:37:51 Date Recorded Body height Body mass index (BMI) Body weight Body temperature Oxygen saturation Oxygen saturation in Arterial blood by Pulse oximetry Heart rate Systolic blood pressure Diastolic blood pressure Provider Name and Address Organization Details Last Updated DateTime 5 160.02 cm 44.1 kg/m2 243407. 55 g 98.1 [degF] 95 % 95 % 110 /min 146 mm[Hg] 82 mm[Hg] Melva Sanchez RN [facility] 5 14:03:17 Date Recorded Body height Body mass index (BMI) Body weight Body temperature Oxygen saturation Oxygen saturation in Arterial blood by Pulse oximetry Systolic blood pressure Diastolic blood pressure Provider Name and Address Organization Details Last Updated DateTime 5 160.02 cm 45.2 kg/m2 181799. 75 g 97.2 [degF] 97 % 97 % 120 mm[Hg] 86 mm[Hg] Melva Sanchez RN [facility] 5 17:32:27 Date Recorded Heart rate Provider Name an d Address Organization Details Last Updated DateTime 10/19/2024 104 /min Jacquelin Silverman [address], [address], [place] [employer] [facility] 10/19/2024 17:45:24 Social History Question Answer Notes LastModified by Organization Details LastModified Time Tobacco Smoking Status Current Every Day Smoker Not Available [facility] 10/30/2022 02:24:47 Do You Have An Advance Directive? No MIGRATION.030 [id number] Information not available 10/30/2022 What Is Your Level Of Alcohol Consumption? Occasional MIGRATION.0301 [id number] Information not available 10/30/2022 How Many Years Have You Consumed Alcohol? 29 [email or web address] Information not available 10/19/2024 Do You Wear A Helmet When Biking? No MIGRATION.0301 [id number] Information not available 10/30/2022 What Is Your Level Of Caffeine Consumption? Occasional One Coke Per Day And One Cup Coffee Per Day [email or web address] Information not available 10/19/2024 In The 14 Days Before Symptom Onset, Have You Had Close Contact With A Laboratory-confi rmed COVID-19 While That Case Was Ill? No MIGRATION.0301 [id number] Information not available 10/30/2022 In The 14 Days Before Symptom Onset, Have You Had Close Contact With A Person Who Is Under Investigation For COVID-19 While That Person Was Ill? No MIGRATION.0301 [id number] Information not available 10/30/2022 What Type Of Diet Are You Following? REGULAR MIGRATION.030 745999 Information not available 10/30/2022 What Is The Highest Grade Or Level Of School You Have Completed Or The Highest Degree You Have Received? [id number] MIGRATION.0301 [id number] Information not available 10/30/2022 Have There Been Any Changes To Your Family Or Social Situation? No MIGRATION.0301 [id number] Information not available 10/30/2022 Do You Use Insect Repellent Routinely? No MIGRATION.0301 [id number] Information not available 10/30/2022 Where Do You Live? [place]House MIGRATION.0301 [id number] Information not available 10/30/2022 Do You Have A Medical Power Of Starchmaker? No MIGRATION.0301 782461 Information not available 10/30/2022 What Is Your Current Pack Years? 20-29packyears [email or web address] Information not available 10/19/2024 Do You Have Any Pets? Yes MIGRATION.0301 [id number] Information not available 10/30/2022 What Is Your Relationship Status? Single MIGRATION.0301 133146 Information not available 10/30/2022 Do You Use Your Seat Belt Or Car Seat Routinely? Yes MIGRATION.0301 [id number] Information not available 10/30/2022 Do You Have Smoke And Carbon Monoxide Detectors In Your Home? Yes MIGRATION.0301 [id number] Information not available 10/30/2022 At What Age Did You Start Smoking Tobacco? 15 [email or web address] Information not available 10/19/2024 Are You Passively Exposed To Smoke? No MIGRATION.0301 203047 Information not available 10/30/2022 Are There Any Smokers In Your House? No MIGRATION.030 377443 Information not available 10/30/2022 How Much Tobacco Do You Smoke? 0.5 PPD MIGRATION.030 827140 Information not available 10/30/2022 Do You Participate In Social Media? Yes MIGRATION.030 219976 Information not available 10/30/2022 Do You Feel Stressed (tense, Restless, Nervous, Or Anxious, Or Unable To Sleep At Night)? [id number] MIGRATION.030 852536 Information not available 10/30/2022 Do You Use Sunscreen Routinely? Yes MIGRATION.030 438236 Information not available 10/30/2022 Has Tobacco Cessation Counseling Been Provided? No MIGRATION.030 [id number] Information not available 10/30/2022 How Many Years Have You Smoked Tobacco? 29 [email or web address] Information not available 10/19/2024 Are You Currently In School? No MIGRATION.030 612331 Information not available 10/30/2022 Do You Have Any Dietary Restrictions? No MIGRATION.030 541984 Information not available 10/30/2022 Do You Or Have You Ever Used Any Other Forms Of Tobacco Or Nicotine? No MIGRATION.0301 [id number] Information not available 10/30/2022 Sex: Female Functional Status Question Answer Note LastModified by Organizat ion Details LastModified Time What is your exercise level? Occasional [id number] 26 Information not available 10/30/2022 Mental Status None recorded. Family History Relationship Description Onset Age of this Age Resolved Age Notes LastModified by Organization Details LastModified Time Mother Amyotrophic lateral sclerosis MIGRATION.243 [id number] Not available 10/30/2022 02:30:07 Medical History Condition Response BLINDNESS N RHEUMATIC FEVER N KIDNEY STONES N BLADDER PROBLEMS N MRSA N OTHER # 1 N POLIO N LUNG DISEASE/DISORDER N HISTORY OF DRUG ABUSE N RADIATION / CHEMOTHERAPY N COPD N Other # 2 N BLOOD DISEASES N SURGERY N EAR OR HEARING PROBLEMS N MUMPS N SHINGLES N FEMALE PROBLEMS / INFECTIONS N DEPRESSION (INCLUDING POST ) N BOWEL PROBLEMS N STROKE/TIA N THYROID DISEASE N ULCERS N BENIGN PROSTATIC HYPERPLASIA N MEASLES N CERVICALGIA N TB SKIN TEST N HYPOTENSION N MYOCARDIAL INFARCTION N PARAPELGIA N OBESITY N GERD/NAUSEA N ANEURYSM N URINARY/BLADDER/KIDNEY PROBLEMS N CORONARY ARTERY DISEASE (CAD) N MENIERE'S DISEASE N ADDICTION CONCERNS N ENDOMETRIOSIS N USE OF BLOOD THINNERS N SKIN PROBLEMS N EMPHYSEMA N GASTROINTESTINAL DISORDER N MUSCLE,JOINT OR BONE PROBLEMS N GASTROINTESTINAL BLEEDING N BLOOD CLOTS N ASTHMA N CATARACTS N ERECTILE DYSFUNCTION N GI PROBLEMS N CHF N Low Testosterone N NEUROPATHY N INFERTILITY N AIDS/HIV N FRACTURES N CHEMOTHERAPY / RADIATION N VISION/EYE PROBLEMS N LIVER DISEASE N MALE HYPOGONADISM N HYPERTENSION N TOURETTE'S N ANXIETY DISORDER N BLOOD TRANSFUSION N ANEMIA/BLOOD DISORDER N CHRONIC EAR INFECTIONS N BRONCHITIS N TUBERCULOSIS N GLAUCOMA N FOOT PROBLEM N DIVERTICULITIS N SLEEP APNEA N CHICKENPOX N ALLERGIES/HAYFEVER N INFECTIOUS DISEASE N PROSTATE N HEART ARRHYTHMIA N INSOMNIA N HIGH CHOLESTEROL / HYPERLIPIDEMIA N EYE PROBLEMS N HYPERTHYROIDISM N EATING DISORDER N EDEMA N CHRONIC PAIN SYNDROME N CAROTID BLOCKAGE N CONSTIPATION N BACK / NECK PROBLEMS N HAVE YOU BEEN HOSPITALIZED OR SEEN IN [facility] IN THE PAST YEAR ? N ATHEROSCLEROSIS N BREAST PROBLEMS N DIALYSIS N ECZEMA N FIBROMYALGIA N OSTEOPOROSIS N ARTHRITIS N NO SIGNIFICANT PAST MEDICAL HISTORY N APPENDICITIS N DIABETES, TYPE N BAD TEETH N HEARTBURN / REFLUX N ADD/ADHD N AUTISM SPECTRUM DISORDER (ASD) N HEPATITIS / LIVER DISEASE N PULMONARY DISEASE N GOUT N SLEEP DISORDER N ALZHEIMER'S DISEASE N PAIN N DEMENTIA N HERPES N SEIZURES/EPILEPSY N HEADACHES/MIGRAINES N VASCULAR DISEASE N PACEMAKER N DIZZINESS N HEART DISEASE/HEART PROBLEMS N KIDNEY DISEASE N SCARLET FEVER N MULTIPLE SCLEROSIS N DEVELOPMENTAL OR BEHAVIORAL DISORDERS N MENTAL DISORDER/ILLNESS N CANCER: SPECIFY N CARDIAC ARRHYTHMIA N PNEUMONIA N ATRIAL FIBRILLATION N Gall Stones N PULMONARY EMBOLISM N AUTOIMMUNE DISEASE N Gynecological History Statement/Question Response Date of Last Mammogram 06/06/2022 Date of Last Colonoscopy Flow Heavy Date of LMP 05/25/2022 Frequency of Cycle (Q days) 5 Most Recent Bone Density Menses Monthly Y Date of Last Pap 09/01/2019 Obstetrics History GPAL:G 0 P 0 0 0 0 Immunizations Vaccine Type Date Status Note Provider Nam e and Address Organization Details Recorded Time Influenza, split virus, quadrivalent, PF 06/08/2020 completed Not Available [facility] 3 02:37:27 Influenza, split virus, quadrivalent, PF 05/28/2021 completed Not Available [facility] 3 02:37:27 Past Encounters Encounter ID Performer Location Encounter Start Date Encounter Closed Date Diagnosis/Indication Diagnosis SNOMED-CT Code Diagnosis ICD10 Code Diagnosis Note [id number] [facility] [address] [place] [address] 11/23/2020 00:00:00 11/23/2020 18:03:05 [id number] [facility] [place] [address] [place] [address] 12/14/2020 00:00:00 12/14/2020 16:02:12 [id number] [facility] [place] [address] [place] [address] 01/23/2021 00:00:00 01/23/2021 17:28:20 [id number] [facility] [place] [address] [place] [address] 03/26/2021 00:00:00 03/26/2021 17:37:33 [id number] [facility] [place] [address] [place] [address] 05/28/2021 00:00:00 05/28/2021 17:35:58 [id number] [facility] [place] [address] [place] [address] 07/25/2021 00:00:00 07/25/2021 17:45:49 [id number] [facility] [place] [address] [place] [address] 09/24/2021 00:00:00 09/24/2021 17:40:59 [id number] [facility] [place] [address] [place] [address] 10/25/2021 00:00:00 10/25/2021 10:16:30 [id number] [facility] [place] [address] [place] [address] 11/21/2021 00:00:00 11/21/2021 17:59:01 [id number] [facility] [place] [address] [place] [address] 01/22/2022 00:00:00 01/24/2022 09:53:07 [id number] [facility] [place] [address] [facility] [place] [address] 03/25/2022 00:00:00 03/25/2022 17:16:15 [id number] [facility] [place] [address] [facility] [place] [address] 06/24/2022 00:00:00 06/24/2022 16:54:56 [id number] [facility] [place] [address] [facility] [place] [address] 07/22/2022 00:00:00 07/22/2022 09:37:29 [id number] [facility] [place] [address] [facility] [place] [address] 08/05/2022 00:00:00 08/05/2022 17:41:04 [id number] [facility] [place] [address] 09/23/2022 00:00:00 09/23/2022 18:08:31 [id number] Armani Espinosa MD [facility] [place] [address] 11/18/2022 17:02:28 11/18/2022 17:51:48 Hyperlipidemia 13034957 E78.5 Attention deficit hyperactivity disorder, 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 Chronic insomnia 5965293 04 F51.04 Mild persi stent asthma 329221055 J45.30 Smoker 45003163 F17.200 Obesity 280532884 E66.9 [id number] Armani Espinosa MD [facility] [address] [place], [place] [address] [place] [address] 01/16/2023 17:19:50 01/16/2023 17:39:57 Hyperlipidemia 01370021 E78.5 Attention deficit hyperactivity disorder, predominantly inattentive type 36796740 F90.0 Chronic insomnia 8145842 04 F51.04 Mild persi stent asthma 747208286 J45.30 Obesity 887039965 E66.9 Medication monitoring 39 6378877 Z51.81 Smoker 57433262 F17.200 [id number] Armani Espinosa MD [address] [address] 03/20/2023 17:16:22 03/20/2023 17:46:41 Hyperlipidemia 88500383 E78.5 Attention deficit hyperactivity disorder, predominantly inattentive type 70409763 F90.0 Chronic insomnia 7668262 04 F51.04 Mild persi stent asthma 353592525 J45.30 Obesity 094062424 E66.9 Smoker 50486564 F17.282 [id number] Armani Espinosa MD [address] [address] 05/21/2023 17:01:46 05/21/2023 17:56:24 Hyperlipidemia 49119806 E78.5 Attention deficit hyperactivity disorder, predominantly inattentive type 90781592 F90.0 Chronic insomnia 2179341 04 F51.04 Mild persi stent asthma 609124538 J45.30 Obesity 410840706 E66.9 Smoker 79821894 F17.632 [id number] Armani Espinosa MD [address] [address] 07/21/2023 17:09:44 07/21/2023 17:39:24 Hyperlipidemia 20498376 E78.5 Attention deficit hyperactivity disorder, predominantly inattentive type 99803727 F90.0 Chronic insomnia 0853062 04 F51.04 Mild persi stent asthma 274067589 J45.30 Obesity 477244193 E66.9 Smoker 99427599 F17.200 [facility] examination 674580744 Z00.00 Vitamin D deficiency 347 84856 E55.9 Medication monitoring 39 1581532 Z51.81 Insulin resistance 10494 5000 E88.836 [id number] Armani Espinosa MD [address] [address] 10/01/2023 17:25:59 10/01/2023 17:48:11 Hyperlipidemia 54654327 E78.5 Attention deficit hyperactivity disorder, predominantly inattentive type 99059221 F90.0 Chronic insomnia 4305975 04 F51.04 Mild persi stent asthma 789501904 J45.30 Obesity 710127736 E66.9 Smoker 75453159 F17.200 Vitamin D deficiency 347 69390 E55.9 Insulin resistance 42858 5000 E88.819 Chronic id iopathic constipation 00102244 K59.04 [id number] Armani Espinosa MD [address] [address] 10/13/2023 10:44:12 10/13/2023 16:44:51 [id number] Armani Espinosa MD [address] [address] 10/23/2023 17:20:57 10/23/2023 17:56:06 Hyperlipidemia 93229455 E78.5 Attention deficit hyperactivity disorder, predominantly inattentive type 49426078 F90.0 Insulin resistance 71973 5000 E88.819 Chronic insomnia 0074617 04 F51.04 Mild persi stent asthma 239670427 J45.30 Obesity 032913333 E66.9 Smoker 66150635 F17.200 Vitamin D deficiency 347 16252 E55.9 Improved Chronic id iopathic constipation 64335731 K59.04 Screening mammography 24 785178 Z12.31 [id number] Armani Espinosa MD [address] [address] 12/25/2023 16:51:15 12/25/2023 17:19:24 Hyperlipidemia 00999388 E78.5 Attention deficit hyperactivity disorder, predominantly inattentive type 99910083 F90.0 Insulin resistance 20863 5000 E88.819 Chronic insomnia 9593397 04 F51.04 Obesity 085901205 E66.9 Chronic id iopathic constipation 62082312 K59.04 Medication monitoring 39 6810447 Z51.81 [id number] Armani Espinosa MD [address] [address] 02/19/2024 16:58:48 02/19/2024 17:26:57 Medication monitoring 936561436 Z51.81 Attention deficit hyperactivity disorder, predominantly inattentive type 70302708 F90.0 Hyperlipidemia 93127039 E78.5 Insulin resistance 83871 5000 E88.819 Chronic insomnia 7158505 04 F51.04 Obesity 226398344 E66.9 Chronic id iopathic constipation 66511540 K59.04 Pain of le ft ankle joint 6289759142 6267438 M25.572 Allergic rhinitis 943161 04 J30.9 Gastroesop hageal reflux disease without esophagitis 750355077 K21.9 [id number] Armani Espinosa MD [address] [address] 04/20/2024 17:04:41 04/20/2024 17:33:59 Attention deficit hyperactivity disorder, predominantly inattentive type 74040087 F90.0 Hyperlipidemia 71354413 E78.5 Chronic id iopathic constipation 20946421 K59.04 Insulin resistance 57571 5000 E88.819 Chronic insomnia 4954326 04 F51.04 Obesity 052188062 E66.9 Pain of le ft ankle joint 1475970140 2662043 M25.572 Allergic rhinitis 518017 04 J30.9 Gastroesop hageal reflux disease without esophagitis 721383934 K21.9 Smoker 46584941 F17.881 [id number] Armani Espinosa MD [address] [address] 05/04/2024 15:09:31 05/04/2024 15:58:44 Cough 63058911 R05.9 Nasal congestion 7296268 0 R09.81 Fatigue 98410166 R53.83 Bronchitis 61349555 J40 [id number] Armani Espinosa MD [address] [address] 06/21/2024 17:01:15 06/21/2024 17:39:57 Hyperlipidemia 77409731 E78.5 Attention deficit hyperactivity disorder, predominantly inattentive type 14673539 F90.0 Chronic id iopathic constipation 04572255 K59.04 Insulin resistance 66586 5000 E88.819 Chronic insomnia 4207845 04 F51.04 Obesity 741695608 E66.9 Pain of le ft ankle joint 3694464634 2561103 M25.572 Allergic rhinitis 439815 04 J30.9 Gastroesop hageal reflux disease without esophagitis 687833498 K21.9 Smoker 01394677 F17.200 Medication monitoring 39 6745849 Z51.81 [id number] Armani Espinosa MD [address] [address] 08/19/2024 17:14:13 08/19/2024 17:39:35 Attention deficit hyperactivity disorder, predominantly inattentive type 43768292 F90.0 Chronic id iopathic constipation 86650896 K59.04 Hyperlipidemia 97996124 E78.5 Insulin resistance 35001 5000 E88.819 Chronic insomnia 2485687 04 F51.04 Obesity 824877124 E66.9 Pain of le ft ankle joint 7169075006 6221946 M25.572 Allergic rhinitis 095795 04 J30.9 Gastroesop hageal reflux disease without esophagitis 427764641 K21.9 Smoker 99540105 F17.375 [id number] Armani Espinosa MD [address] [address] 09/09/2024 13:53:09 09/09/2024 14:13:40 Cough 96955756 R05.9 Bronchitis 49408218 J40 Mild persi stent asthma 190543662 J45.30 [id number] Armani Espinosa MD [address] [address] 10/12/2024 16:25:48 10/13/2024 08:04:57 Cough 84958511 R05.9 Nasal congestion 2245426 0 R09.81 Exposure t o SARS-CoV-2 075904791 Z20.732 [id number] Armani Espinosa MD [address] [address] 10/19/2024 17:24:25 10/19/2024 17:54:10 Attention deficit hyperactivity disorder, predominantly inattentive type 78369345 F90.0 Chronic id iopathic constipation 36355779 K59.04 Hyperlipidemia 55146117 E78.5 Insulin resistance 44320 5000 E88.819 Chronic insomnia 4607629 04 F51.04 Obesity 709800119 E66.9 Pain of le ft ankle joint 7563835215 4823746 M25.572 Gastroesop hageal reflux disease without esophagitis 483878920 K21.9 Smoker 28325454 F17.200 Adult heal th examination 265199369 Z00.00 Vitamin D deficiency 347 59263 E55.9 Improved Medication monitoring 39 2554251 Z51.81 [id number] Armani Espinosa MD [facility] [address] [address] 12/06/2024 12:32:21 12/06/2024 14:19:18 Cough 49019744 R05.9 Nasal congestion 6502905 0 R09.81 Bronchitis 46364410 J40 Health Concerns Section Related Observation LastModified by Organization Detai ls LastModified Time None Recorded Concern Status LastModified by Organization Details LastModified Time None Recorded Advance Directives Directive N: Payers Encounter Date Sequence Insurance Name Policy Number Policy Carrillo Covered Member ID Carrillo Member ID Guarantor Name 08/19/2024 1 [facility] [id number] [facility] [id number] [facility] 08/19/2024 2 [place] [facility] Leyla Mendiola [id number] Leyla Mendiola 09/09/2024 1 [facility] [id number] [facility] [id number] Leyla [facility] 09/09/2024 2 [place] [facility] Leyla Mendiola [id number] Leyla Mendiola 10/12/2024 1 [facility] [id number] Leyla [facility]rand [id number] [facility] 10/12/2024 2 [place] [facility] Leyla Mendiola [id number] Leyla Mendiola 10/19/2024 1 [facility] [id number] Leyla Mendiola [id number] Leyla Mendiola 10/19/2024 2 [place] [facility] Leyla Mendiola [id number] Leyla Mendiola 12/06/2024 1 [facility] [id number] Leyla Mendiola [id number] Leyla Mendiola 12/06/2024 2 [place] [facility] Leyla Mendiola [id number] Leyla Mendiola Notes Date Note Type Note Provider Name and Address Organization Details Recorded Time 08/19/2024 text/html Pt is here for f/u on her lab, meds and chronic conditions. Doing overall much better than before. Pt denies any problems with meds. Denies any new concern. Pt has not gone for lab & x-ray yet. C/o Lt ankle area pain and swelling for last several months, on/off. Pt has not seen anyone for this. Pt is f/u with breast surgeon at [facility] for her abnormal mammo and they did further testing and all came back good as per pt. Pt is f/u with her Gyne for her irregular and heavy periods and got fibroids removed and got Mirena placement.Pt is still smoking about 0.25-0.5 ppd and has patches at home.Pt has done sleep study and she has very mild PRECIOUS, but due insurance criteria, she will not get Cpap machine.Pt has ADD for last many years and was seeing Psych in the past and is on Adderall 30mg bid dose for last several years and doing well on it. Pt has not seen any Psych for last several years. Denies any other mood concerns.Doing well with her asthma and its controlled.Pt is f/u with Derm at [place] for her skin concerns. Armani Espinosa MD [address] [place] [address], [facility] [address], [place], [address], [facility] 08/19/2024 17:39:11 09/09/2024 text/html ACV: C/o cough, congestion, fatigue, drainage for last 2-3 days. Pt says lot of people at her work are sick too. Pt has been doing otc meds, but still not getting better yet. Armani Espinosa MD [address], [place], [address], [facility] [employer] [facility] 09/09/2024 14:13:06 10/12/2024 text/html Televisit.ACV. C/o congestion, cough, bodyaches, sputum for last 3-4 days. Pt says few of her co-workers were sick last week and they have covid. Armani Espinosa MD [address], [place], [address], [employer] [facility] 10/12/2024 17:57:01 10/19/2024 text/html Pt is here for her annual exam. Doing overall much better than before. Pt denies any problems with meds. Denies any new concern. No more Lt ankle pain/swelling concern. Pt has not gone for x-ray yet. Pt is f/u with breast surgeon at [facility] for her abnormal mammo and they did further testing and all came back good as per pt. Pt is f/u with her Gyne for her irregular and heavy periods and got fibroids removed and got Mirena placement.Pt is still smoking about 0.25-0.5 ppd and has patches at home.Pt has done sleep study and she has very mild PRECIOUS, but due insurance criteria, she will not get Cpap machine.Pt has ADD for last many years and was seeing Psych in the past and is on Adderall 30mg bid dose for last several years and doing well on it. Pt has not seen any Psych for last several years. Denies any other mood concerns.Doing well with her asthma and its controlled.Pt is f/u with Derm at [place] for her skin concerns. Armani Espinosa MD [address], [place], [address], [facility] 10/19/2024 17:48:23 12/06/2024 text/html Telephone visit.ACV. C/o cough, congestion, sore throat, fatigue for last 4 days. Pt says few people at work were sick last week. Pt has been doing otc meds, but still not getting better. No other concern. Armani Espinosa MD [address] [facility] [address], [place], [address], [place] [facility] 12/06/2024 14:09:29 OBGyn Episode No OBEpisode recorded.
--- OUTSIDE RECORDS SUMMARY | 2024-12-10 08:38 | XMS_ITS | Continuity of Care Document ---
Author Organization [facility] Address [address] [place] [address] Phone Care Team Providers Care [employer] Repairer Name Role Phone Heaven Lebron MD Unavailable Unavailable Allergies, Adverse Reactions, Alerts Substance Reaction Status Criticality No Known Allergies Active No Inform ation Medications Medication Instructions Dosage Effective Dates (start - stop) Status Comments Adderall 30 mg tablet take 1 tablet by oral route every day before breakfast 30 MG - Active Advair Diskus 100 mcg-50 mcg/dose powder for inhalation inhale 1 puff by inhalation route 2 times every day in the morning and evening approximately 12 hours apart 1.00 puff - Active Advance Directives Directive Yes / No Effective Date File Name No Information Encounters Encounter Description Practice Location Reason(s) For Visit Diagnoses Date Provider Providers Copied on Encounter [facility], [address], [place], [place], [address], tel:[phone] [facility] No Information Bernardino Collado. [address], [place], [place], [address], . tel:[phone] [facility], [address], [place], [place], [address], tel:[phone] [facility] Ankle fracture, unspecified laterality, closed, initial encounter Bernardino Collado. [address], [place], [place], [address], . tel:[phone] Referring Provider: [address], [place], [address]. tel:[phone] Family History Family Member Type Diagnosis Age At Onset No Information Payers Payer name Insurance type Covered green party ID Diamond POE (s) OPEN ACCESS CI [id number] Social History Type Description Quantity Date Captured Comments Sex Female Smoking Status No Information Chief Complaint And Reason For Visit No Information Reason For Referral Reason For Referral No Information History Of Present Illness Encounter Date Complaint History Of Prese nt Illness No Information Functional Status Date Functional Assessmen t No Information Instructions Date Instruction Additional Infor mation No Information Assessments Type Assessment Date No Information Patient Care Teams Name Effective Dates (start - stop) Status Members No Information
--- OUTSIDE RECORDS SUMMARY | 2024-12-10 08:38 | XMS_ITS | Clinical Summary ---
Author Organization [employer] Address [address] 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
--- OUTSIDE RECORDS SUMMARY | 2024-12-10 08:38 | XMS_ITS | Encounter Summary ---
Author Organization [employer] Address 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 Gender Identity Not on file Sexual Orientation Not on file documented as of this encounter Plan of Treatment Not on file documented as of this encounter Procedures Procedure Name Priority Date/Time Associated Diagnosis Comments DRUGS OF ABUSE W/REFLEX THC QUANT Routine 04/18/2009 2:39 PM CDT documented in this encounter Results * DRUGS OF ABUSE W/REFLEX THCSQ (04/18/2009 2:39 PM CDT) COMMENT, TOXICOLOGY See Separate Comment [facility] Comment: Urine sample was not handled [...] drugs of abuse are available on the [facility] Intranet at: [email or web address] Select: Lab Policies & Procedures Select: Drugs of Abuse-[facility] To inquire about any potential cross-reactivity of a specific drug not listed at this site, please contact the Chemistry Lab at . AMPHETAMINE QUAL, URINE Negative Negative [facility] BARBITURATE QUAL, URINE Negative Negative [facility] BENZODIAZEPINE QUAL, URINE Negative Negative [facility] CANNABINOIDS QUAL, URINE Negative Negative [facility] COCAINE QUAL URINE Negative Negative [facility] OPIATE QUAL, URINE Negative Negative [facility] PCP QUAL, URINE Negative Negative [facility] Urine specimen (specimen) 04/18/2009 2:39 PM CDT 04/18/2009 5:16 PM CDT us Ephraim Marx MD URINE ORDERABLES Edited [facility] CLIA# [id number] [address] [place] [address] documented in this encounter Visit Diagnoses Not on filedocumented in this encounter
--- OUTSIDE RECORDS SUMMARY | 2024-12-10 08:38 | XMS_ITS | Encounter Summary ---
Author Organization [facility] Address [address] [facility] [place] [address] Care Team Providers Care Scale Adjuster Name Role Phone Armani Espinosa MD Primary Care Provider [phone] Reason for Visit * Reason Comments Refill Request Encounter Details Date Type Department Care Team (Late st Contact Info) Description 12/12/2023 Refill [facility] TALLY CLERK [address] [facility] [address] [place] [address] Zohreh Murray MD [address] 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 No 02/13/2017 Is person blind or have serious difficulty seein g? No 02/13/2017 Does person have serious dif ficulty walking/climbing stairs? No 02/13/2017 Does person have difficulty dressing/bathing? No 02/13/2017 Does person have difficulty doing errands alone? No 02/13/2017 Cognitive Status Response Date of Assessm ent Does person have difficulty concentrating/remembering/making decisions? No 02/13/2017 documented as of this encounter Plan of Treatment Not on file documented as of this encounter Visit Diagnoses Not on filedocumented in this encounter Care Teams Scale Adjuster Relationship Specialty Start Date End Date Armani Espinosa MD [address] [place] [address] PCP - General Family Medicine 02/20/23 documented as of this encounter
--- OUTSIDE RECORDS SUMMARY | 2024-12-10 08:42 | XMS_ITS | Continuity of Care Document ---
Author Organization [facility] Address [address] [place] [address] Phone Care Team Providers Care Order Manager Name Role Phone Heaven Lebron MD Unavailable Unavailable Allergies, Adverse Reactions, Alerts Substance Reaction Status Criticality No Known Allergies Active No Inform ation Medications Medication Instructions Dosage Effective Dates (start - stop) Status Comments Advair Diskus 100 mcg-50 mcg/dose powder for inhalation inhale 1 puff by inhalation route 2 times every day in the morning and evening approximately 12 hours apart 1.00 puff - Active Adderall 30 mg tablet take 1 tablet by oral route every day before breakfast 30 MG - Active Advance Directives Directive Yes / No Effective Date File Name No Information Encounters Encounter Description Practice Location Reason(s) For Visit Diagnoses Date Provider Providers Copied on Encounter [facility], [address], [place], [place], [address], tel:[phone] [facility] No Information Bernardion Collado. [address], [place], [place], [address], . tel:[phone] [facility], [address], [place], [place], [address], tel:[phone] [facility] Ankle fracture, unspecified laterality, closed, initial encounter Bernardino Collado. [address], [place], [place], [address], . tel:[phone] Referring Provider: [address], [place], [address]. tel:[phone] Family History Family Member Type Diagnosis Age At Onset No Information Payers Payer name Insurance type Covered alliance party ID Diamond POE (s) OPEN ACCESS CI [id number] Social History Type Description Quantity Date Captured [...]
--- OUTSIDE RECORDS SUMMARY | 2024-12-10 08:42 | XMS_ITS | Continuity of Care Document ---
Author Organization [facility] Address [address] [place] [address] Phone Care Team Providers Care Patrol Agent Name Role Phone Chacorta Nguyen MD, FACS [...] Diagnoses Date Provider Providers Copied on Encounter [facility], [facility] [email or web address], [place], [place], [address], [place] [phone] SEC Megan Mendenhall No Information 8 Patrick Whatley. [facility] [address], [address], [place], [place], [address], [place]. tel:[phone] [facility], [facility] [email or web address], [place], [place], [address], [place] tel:[phone] SEC [place] No Information 7 Dara Valencia. [address] [place], [address], [place]. tel:[phone] [facility], [facility] [email or web address], [place], [place], [address], [place] tel:[phone] SEC Megan Mendenhall 3 month f/u, Post op (chief complaint) Post Op exam 0 5 Maria E Lieberman. [address] [facility], [facility] [address], [place], [address], [place]. tel:[phone] Referring Provider: Chacorta Damon, [facility] [email or web address], [place], [address] . tel:[phone] [facility], [facility] [email or web address], [place], [place], [address], [place] tel:[phone] SEC [facility] 3 [place] LASIK PO (chief complaint) FOLLOW-UP SURGERY NOS 0-201 5 Maria E Lieberman. [address], [id number], . tel:[phone] Referring Provider: Mio Barcenas, [address] [facility] [address] [place] [address], [address] . tel:[phone] [facility], [address] [place] [address] [address], [place], [place], [address], [place] tel:[phone] SEC [facility] 2 Week PO LASIK OU (chief complaint) FOLLOW-UP SURGERY NOS 3-201 5 Maria E Lieberman. [address], [id number], . tel:[phone] Referring Provider: Mio Barcenas, [address], [address] . tel:[phone] [facility], [address], [place], [place], [address], [place] tel:[phone] SEC Megan N [place] 1 WK PO LASIK (chief complaint) FOLLOW-UP SURGERY NOS 8-201 5 Maria E Lieberman. [address] [facility] [address], [place], [address], . tel:[phone] Referring Provider: Chacorta Damon, [address], [place], [address] . tel:[phone] [facility], [address] [place] [address] [address], [place], [place], [address], [place] tel:[phone] SEC [facility] 1 DAY PO LASIK (chief complaint) FOLLOW-UP SURGERY NOS 8-201 5 Maria E Lieberman. [address] [facility], [facility] [address], [place], [address], . tel:[phone] Referring Provider: Mio Barcenas, [address], [address] . tel:[phone] [facility], [address], [place], [place], [address], tel:[phone] SEC [facility] Blurry vision (chief complaint) MYOPIA 5 Maria E Lieberman. [address], [id number], . tel:[phone] Referring Provider: Mio Barcenas, [address], [address] . tel:[phone] [facility], [address] [place] [address] [address], [place], [place], [address], tel:[phone] SEC [facility] No Information 5 [employer] [facility] . [address] [place] [address], [id number], . tel:[phone] Referring Provider: Mio Barcenas, [address] [place] [address], [address] . tel:[phone] sulting Provider: Ryan Page, [address] [facility] [address], [place], [address] . tel:[phone] [facility], [address] [place] [address] [address], [place], [place], [address], [place] tel:[phone] SEC [facility] MYOPIA 3 Maria E Lieberman. [address], [id number], . tel:[phone] [facility], [address], [place], [place], [address], [place] tel:[phone] SEC Megan N [place] No Information 3 [employer] . [address] [facility], [address], [place], [address], [place]. tel:[phone] Referring Provider: Mio Barcenas, [address] [facility] [address], [place], [address] . tel:[phone] sulting Provider: Ryan Page, [address], [place], [address] . tel:[phone] [facility], [address] [place] [address] [address], [place], [place], [address], [place] tel:[phone] SEC Megan Mendenhall EYE & VISION EXAMINATIONMYOPIA 2 Maria E Lieberman. [address] [facility], [facility] [address], [place], [address], [place]. tel:[phone] [facility], [address] [place] [address] [address], [place], [place], [address], [place] tel:[phone] SEC Megan N Abdirashid No Information 2 [employer] [facility] . [address] [place] [address], [address], [id number], [place]. tel:[phone] Referring Provider: Mio Barcenas, [address] [address], [place], [address] . tel:[phone] [facility], [address], [place], [place], [address], [place] tel:[phone] SEC [facility] M[facility]a [facility]enh[facility] No Information 2 Patrick Whatley. [address] [facility], [address], [place], [place], [address], [place]. tel:[phone] [facility], [address], [place], [place], [address], [place] tel:[phone] SEC Megan Mendenhall No Information Feb-1 0-201 2 Sanderson Mio. [address] [facility], [address], [place], [place], [address], [place]. tel:[phone] [facility], [address], [place], [place], [address], [place] tel:[phone] SEC [facility] No Information 2 3-201 1 [employer] [facility] . [address] [facility], [address], [place], [place], [address], [place]. tel:[phone] Referring Provider: Mio Barcenas, [address] [facility] [address], [place], [address] . tel:[phone] sulting Provider: Amber Ivy, [address] [facility]. [address], [place], [address]. tel:[phone] [facility], [address], [place], [place], [address], [place] tel:[phone] SEC [facility] No Information 0-201 0 Sanderson Mio. [address] [facility], [address], [address], [place]. tel:[phone] [facility], [address], [place], [place], [address], [place] tel:[phone] SEC [facility] No Information 0 [address] 9 Sanderson Mio. [address] [facility], [facility] [address], [place], [address], [place]. tel:[phone] [facility], [address], [place], [place], [address], [place] tel:[phone] SEC [facility] No Information 4-200 8 Sanderson Mio. [address] [facility], [address], [address], [place]. tel:[phone] Family History Family Member Type Diagnosis Age At Onset No Information Payers Payer name Insurance type Covered republican ID Authornori gonzalez(s) No Information Social History [...] changes at this time OU. Patient using PERIPHERAL VASCULAR TECH tears all day long OS and Blink [...] armando bid OU, continue Blink tears and PERIPHERAL VASCULAR TECH tears.Return for annual exam. Related to Post Op exam - Suggest Blink Gel drops 3-4 x days with PERIPHERAL VASCULAR TECH tears in between.Return 3 months for 6 month post-op. Related to FOLLOW-UP SURGERY NOS - Return 2 months for 3 month ev al. Related to FOLLOW-UP SURGERY NOS - Increase AT's, Ret urn 2 weeks for 1 months post-op. Related to FOLLOW-UP SURGERY NOS - Continue Pred, Aly y and tob qid OU x 1 week.Frequent PERIPHERAL VASCULAR TECH AT's.Return 1 week. Related to FOLLOW-UP SURGERY [...]
[2024-12-10 08:44] VITALS: BP 123/78; PULSE 108; RESP 18; TEMP 36.1; O2SAT 96
--- NOTE | 2024-12-10 09:00 | ED.URI ---
HPI - URI/Sore Throat General Chief Complaint: Upper Respiratory Infection Stated Complaint: cold symptoms Time Seen by Provider: 12/10/24 09:00 Source: patient Mode of arrival: ambulatory Limitations: no limitations History of Present Illness HPI Narrative: 44-year-old female requesting antibiotic change and chest x-ray. Patient has been taking prednisone, Augmentin, promethazine cough syrup and benzonatate for 4 days. Afebrile. Patient thinks that antibiotic is not working. Patient using Advair and albuterol inhalers as prescribed. No respiratory distress noted. All systems reviewed and negative except as noted above. Related Data Home Medications ?Medication ?Instructions ?Recorded ?Confirmed ?Last Taken ?Type albuterol sulfate 90 mcg/actuation 2 puff inhalation Q4-6H PRN 08/30/20 05/04/23 Unknown History aerosol inhaler Shortness Of Breath cetirizine 10 mg tablet 10 mg PO DAILY PRN Allergy Symptoms 08/30/20 05/04/23 Unknown History dextroamphetamine-amphetamine 30 30 mg PO BID 08/30/20 05/04/23 Unknown History mg tablet ergocalciferol (vitamin D2) 1,250 1,250 mcg PO WEEKLY 08/30/20 05/04/23 Unknown History mcg (50,000 unit) capsule famotidine 20 mg tablet 20 mg PO DAILY 08/30/20 05/04/23 Unknown History fluticasone 250 mcg-salmeterol 50 1 inh inhalation BID 08/30/20 05/04/23 Unknown History mcg/dose blistr powdr for inhalation (Wixela Inhub) montelukast 10 mg tablet 10 mg PO HS 08/30/20 05/04/23 Unknown History benzonatate 200 mg capsule mg PO 12/10/24 Unknown History fluticasone 250 mcg-salmeterol 50 1 inh inhalation ONCE 12/10/24 Unknown History mcg/dose blistr powdr for inhalation (Advair Diskus) levonorgestrel (Mirena) 1 device intrauterine ONCE 12/10/24 12/10/24 Unknown History promethazine-DM 6.25 mg-15 mg/5 mL ml 12/10/24 Unknown History oral syrup Allergies Allergy/AdvReac Type Severity Reaction Status Date / Time No Known Allergies Allergy Verified 12/10/24 08:42 Review of Systems Review of Systems: CONSTITUTIONAL: Denies fever, chills, or sweats. EYES: Denies visual changes, redness, or discharge. ENT: Denies rhinorrhea, congestion, sore throat, or otalgia. CARDIOVASCULAR: Denies chest pain, palpitations, or edema. RESPIRATORY: Reports cough, chest congestion,dyspnea with exertion GASTROINTESTINAL: Denies abdominal pain, nausea, vomiting, or diarrhea. GENITOURINARY: Denies dysuria or hematuria. SKIN: Denies rash or itching. MUSCULOSKELETAL: Denies back pain, joint pain, or myalgia. NEUROLOGIC: Denies headache, numbness, or weakness. PSYCHIATRIC: Denies anxiety or depression. All other systems reviewed are negative, except as documented in HPI. [facility] Past Medical History Medical History Asthma Comments At time of signature, agree with nursing past medical, surgical, social and family history. There is no relevant family history pertinent to the presenting complaint. Exam Narrative: GENERAL: This is a well-nourished, well-developed patient, in no apparent distress. HEAD: normocephalic, atraumatic. EYES: PERRL. Sclera clear/white. Vision is grossly intact. EARS: External ears normal, auditory canals clear and without drainage, TMs normal without perforation. Hearing grossly intact. NOSE: External nose normal with no obvious nasal discharge, nares without redness, no rhinorrhea. THROAT: Mucous membranes moist, posterior pharynx clear. NECK: Neck supple, non-tender without lymphadenopathy, masses or thyromegaly. CARDIOVASCULAR: Regular rate and rhythm without murmurs, gallops, or rubs. RESPIRATORY: mildly coarse throughout all lung pastrana. Breath sounds equal bilaterally. No wheezes, rales, or rhonchi. SKIN: warm, Dry, intact with no suspicious lesions or rash, good texture and turgor. NEURO: awake, alert, and oriented to person, place and time. There were no obvious focal neurologic abnormalities. EXTREMITIES: No joint tenderness, effusion, or edema noted. Course Course Level of Care: Express Care Visit Reevaluation(s) Reevaluation #1: Lungs clear to auscultation after DuoNeb. Vital Signs Vital signs: Vital Signs Temperature 36.1 C L 12/10/24 08:44 Pulse Rate 108 H 12/10/24 08:44 Respiratory Rate 18 12/10/24 08:44 Blood Pressure 123/78 12/10/24 08:44 Pulse Oximetry 96 12/10/24 08:44 Oxygen Delivery Room Air 12/10/24 08:44 Temperature 36.1 C L 12/10/24 08:44 Pulse Rate 108 H 12/10/24 08:44 Respiratory Rate 18 12/10/24 08:44 Blood Pressure 123/78 12/10/24 08:44 Pulse Oximetry 96 12/10/24 08:44 Oxygen Delivery Room Air 12/10/24 08:44 Reviewed MDM - URI/Sore Throat MDM Narrative Medical decision making narrative: chest x-ray negative for pneumonia. Discussed results with patient. Patient is well-appearing, nontoxic. No respiratory distress. Recommend she continue Augmentin, prednisone, promethazine and benzonatate. Please be advised this is a medical document. It is intended for [id number] communication. It is written in medical language and may contain unfamiliar abbreviations or verbiage. Medical documents are intended to carry relevant information, facts as evident, and the clinical opinion of the practitioner at the time of the encounter. This report may have been done utilizing a voice recognition system. Attempts have been made to correct errors. However, there may be uncorrected grammatical, spelling, and recognition errors present. The file time of this note does not necessarily represent the time of service. Differential Diagnosis Differential diagnosis: Likely upper respiratory infection, sinusitis, viral infection and bronchitis Discharge Plan Discharge Clinical Impression: Acute bronchitis Qualifiers: Bronchitis organism: unspecified organism Qualified Code(s): J20.9 - Acute bronchitis, unspecified Patient Disposition: Home Condition: Stable Instructions: Acute Bronchitis (ED) Additional Instructions: your chest x-ray was negative for pneumonia. Complete antibiotic and prednisone prescribed by your primary care physician. Continue promethazine cough medication and benzonatate. Continue inhalers as prescribed. Take [id number] Mucinex DM as directed on packaging. Drink at least 64 oz of water a day. Follow-up with your primary care physician if symptoms are not improving. Patient Language: Qatari Prescriptions: No Action fluticasone propion-salmeterol [Wixela Inhub] 250-50 mcg/dose blister with device 1 inh INHALATION BID cetirizine 10 mg tablet 10 mg PO DAILY PRN (Reason: Allergy Symptoms) dextroamphetamine-amphetamine 30 mg tablet 30 mg PO BID famotidine 20 mg tablet 20 mg PO DAILY montelukast 10 mg tablet 10 mg PO HS ergocalciferol (vitamin D2) 1,250 mcg (50,000 unit) capsule 1,250 mcg PO WEEKLY albuterol sulfate 90 mcg/actuation HFA aerosol inhaler 2 puff INHALATION Q4-6H PRN (Reason: Shortness Of Breath) fluticasone propion-salmeterol [Advair Diskus] 250-50 mcg/dose blister with device 1 inh inhalation ONCE Mirena 21 mcg/24hr (up to 8 yrs) 52 mg intrauterine device 1 device intrauterine ONCE Rx Instructions: as a single dose promethazine-DM 6.25-15 mg/5 mL syrup benzonatate 200 mg capsule PO Follow-up/Referrals: Jesús,MD Armani [Primary Care Provider] - Time of Disposition: 09:51
[2024-12-10] MEDS: IPRATROPIUM 0.5 MG/ALBUTEROL SULFATE 2.5 MG AMPUL.NEB 3 ML INHALATION (09:22)
== END 2024-12-10 09:55 | disposition home or self-care (01) ==
PROVIDERS: Emergency Provider Nurse Practitioner Family; PCP Family Medicine
DX: J20.9 Acute bronchitis, unspecified (principal); J45.909 Unspecified asthma, uncomplicated
CPT/HCPCS: 71046; 94640; 99213; G0463